=== PATIENT | female | born 1950 | race African-American/Black ===

== ENCOUNTER 2017-01-26 21:00 | Inpatient (IN) | payer MEDICARE, MEDICAID ==
--- NOTE | ~2017-01-26 | CT71 ---
[facility] A Service of [facility] RADIOLOGY TEXT RESULTS PATIENT: RIA MIRANDA LOCATION: [facility] 329 : 49 UNIT #: [id number] AGE: [address]: Drake Turner MD SEX: F ORDER DR: [id number] [place], [place] [address] [id number] I MR#: [id number] Acc #: [id number] NAME: RIA MIRANDA : 1950 SEX: F STUDY DATE/TIME: 02/03/2017 13:37 UNIT: C3A PCU ROOM: [facility] STUDY DESCRIPTION: CT Head Wo Contrast Attending Physician: Drake Turner M.D. Referring Physician: Self Referral-Refer Use Only Ordering Physician: Clemente Craven M.D. Primary Care Physician: Primary Care Physician No MEDICAL IMAGING REPORT This report is preliminary unless electronic signature is present EXAM CT head INDICATIONS Confusion. Temporary encephalopathy. 1-day duration. TECHNIQUE CT of the head without contrast. This CT exam was performed with one or more of the following radiation dose reduction techniques: automatic exposure control, adjustment of mA and/or kV according to patient size, and iterative reconstruction. COMPARISON CT head dated 11/20/2016 FINDINGS There is no acute intracranial hemorrhage, mass lesion, or acute infarct. There is some mild chronic small vessel changes in the periventricular and subcortical white matter. The ventricle and basilar cisterns are normal in size and configuration. No extraaxial collections. IMPRESSION No acute findings. Chronic small vessel changes. Dictated by... Moi Cardona M.D. THIS IS AN ELECTRONICALLY VERIFIED REPORT Moi Cardona M.D. at 02/04/2017 2:12 PM [facility]/to TD: 02/03/2017 20:15 JOB #: [id number] [facility] A Service [facility] RADIOLOGY TEXT RESULTS PATIENT: RIA MIRANDA LOCATION: [facility] 329 : 49 UNIT #: [id number] AGE: [address]: Drake Turner MD SEX: F ORDER DR: MEDICAL IMAGING REPORT Page 1 of 1 COPY
--- NOTE | ~2017-01-26 | CT92 ---
[facility] A Service of [facility] RADIOLOGY TEXT RESULTS PATIENT: RIA MIRANDA LOCATION: [address] : [birth year] UNIT #: [id number] AGE: [address]: Drake Turner MD SEX: F ORDER DR: [id number] [facility] [address] [facility]. [place], [place] [address] [id number] I MR#: [id number] Acc #: [id number] NAME: RIA MIRANDA : 1950 SEX: F STUDY DATE/TIME: 01/31/2017 16:07 UNIT: [facility] ROOM: [facility] STUDY DESCRIPTION: CT Lower Ext Lt Wo Cont Attending Physician: Drake Turner M.D. Referring Physician: Self Referral-Refer Use Only Ordering Physician: Aury Gonsalez M.D. Primary Care Physician: Primary Care Physician No MEDICAL IMAGING REPORT This report is preliminary unless electronic signature is present EXAM CT left foot without contrast HISTORY Foot swelling and redness, chronic. Evaluate for osteomyelitis. FINDINGS This CT exam was performed with one or more of the following radiation dose reduction techniques: Automatic exposure control, adjustment of mA and/or kV according to patient size, and iterative reconstruction. CT left foot without contrast demonstrates soft tissue swelling and a 3 mm soft tissue defect along the medial plantar margin of the base of the great toe, suggesting soft tissue edema or inflammation and a small skin ulcer. No underlying bone destruction. No opaque soft tissue foreign body. Generalized demineralization. Moderate degenerative changes in the ankle and mild to moderate degenerative changes in the midfoot. Motion artifact degrades several images, with probable artifactual abnormalities at the neck of the third, fourth and fifth metatarsals due to the motion artifact, mimicking fractures on the reconstructed images. Correlation to foot x-ray is recommended, for confirmation, and to exclude fracture. Small ankle joint effusion. IMPRESSION 1. No bony destruction. 2. Soft tissue swelling and subcutaneous stranding along the plantar margin of the foot, more focally along the plantar medial margin of the base of the great toe, where there is a 3 mm superficial soft tissue defect and underlying soft tissue gas, likely secondary to ulcer versus gas-producing soft tissue infection. 3. Motion artifact probably simulates fractures of the neck of the third, fourth and fifth metatarsals. X-ray of the foot is recommended for further assessment and to exclude fracture. [facility] A Service of [facility] RADIOLOGY TEXT RESULTS PATIENT: RIA MIRANDA LOCATION: [place] [address]14 : 49 UNIT #: [id number] AGE: [address]: Drake Turner MD SEX: F ORDER DR: 4. Generalized demineralization. 5. Moderate degenerative changes in the mid foot and ankle. Dictated by... Hemanth Garcia M.D. THIS IS AN ELECTRONICALLY VERIFIED REPORT Hemanth Garcia M.D. at 02/01/2017 12:04 AM DFL/psc TD: 01/31/2017 20:22 JOB #: [id number] MEDICAL IMAGING REPORT Page 1 of 1 COPY
--- NOTE | ~2017-01-26 | FU ---
[facility] Nutrition Therapy DATE: 02/05/17 Patient: RIA MIRANDA Physician: LILIANA Address: [address] Room/Bed: [address] [place] [address], Zip: [place] [address] Admit Date: 01/26/17 Date of : 49 Height: 5 6 Weight: 168 76.5 NUTRITION MONITORING/FOLLOW-UP: Reason: Nutrition follow up Anthropometrics: Wt: 76.5 kg Labs: Na+ 129 Cl- 77 Gluc 240 BUN 34 Ca++ 8.3 Accuchecks 58-170 GFR 54.2 Meds: Spironolactone, MgSO4, KCl, levemir, lipitor, Mag-ox, protonix, synthroid (PO), novolog I&O's: 948/1701, last BM 02/05 Skin: Reviewed, no changes noted. Edema: BLE 1+ Diet: HH/CC, fluid restriciton per MD Assessment: Chart reviewed, events noted. Pt is now on 3A. RD spoke with the pt's RN who reports that the pt's appetite is much improved, and she is consuming 100% of meals today. Staff working with pt at time of RD visit. Pt remains with increased protein needs d/t skin breakdown. RD will order appropriate supplements and follow up. Previous nutrition diagnosis resolved, see new Dx. Dx: Increased protein needs RT skin breakdown, pressure ulcers AEB delayed wound healing. Intervention: 1. Continue current diet 2. Ensure compact BID 3. Moise BID Monitoring, Evaluation and Goals: 1. Oral intake; tolerate >50-75% of meals 2. Labs; WNL 3. Weight; preserve lean body mass 4. Skin; promote healing Recommendations: 1. Continue current diet with fluid restriction per MD orders. 2. Ensure compact BID + Moise BID for supplemental nutrition and wound healing support. [facility] Nutrition Therapy DATE: 02/05/17 Patient: RIA MIRANDA Physician: LILIANA Address: [address] Room/Bed: [address] [place] [address], Zip: [place] [address] Admit Date: 01/26/17 Date of : [birth year] Height: 5 6 Weight: 168 76.5 3. Appreciate staff and family encouraging and assisting with PO intake as needed. Status: Pt is at mild-moderate nutritional risk. RD will continue to follow. Respectfully, MARZENA POLK, JHONATAN, LD [employer] cc: client file
--- NOTE | ~2017-01-26 | CO ---
Unit #: [id number] #: [id number] Patient: RIA CARROLL [id number] [facility]. [place], [place] [address] [id number] I MR#: [id number] NAME: RIA CARROLL ROOM: [facility] Age: 66 Sex: F Admission Date: 01/26/2017 : 1950 Attending Physician: Drake Turner M.D. Primary Care Physician: Jamee Primary Care Physician Consultation Date: 01/27/2017 CONSULTATION REPORT REASON FOR CONSULTATION Cardiovascular management. HISTORY OF PRESENT ILLNESS This is a 66-year-old female previously known to [facility] Cardiology with a past medical history of a recent admission to [facility] in 11/2016 for nonischemic cardiomyopathy, congestive heart failure and a fall. The patient was also treated for an acute kidney injury and hyperkalemia at that time. She underwent cardiac catheterization on 11/22/2016, which revealed nonobstructive coronary artery disease. Left main was 30%-40%. LAD was 30%. Mid right coronary artery was 20%-30%. Left circumflex was normal. Ejection fraction was low at 10%-15%. She underwent a Medtronic atrial implantable cardioverter defibrillator on 11/26/2016. Additional past medical history includes hypertension, hyperlipidemia, diabetes mellitus, hypothyroidism and reformed tobacco abuse. The patient presented to the emergency department per EMS with complaints of fatigue, shortness of breath and edema. Her symptoms have been present for the last couple of days and recently became worse. She also admits to some chest pain in her left anterior chest that is described as tightness. There is no radiation to the neck, jaw, shoulders or arms. No associated symptoms of nausea, vomiting or diaphoresis. However, she has been short of breath as noted. In addition, she admits to PND and orthopnea. There are no reports of dizziness, palpitations or syncope. She states that she has been compliant with her medications, but does not always follow her fluid restriction. Respiratory rate was 30, pulse 105 with a blood pressure of 135/52. O2 saturations were 98%. Labs revealed white blood cell count 31.6, hemoglobin 9.1, hematocrit 31.7. Creatinine was 2.0 with a BUN 28. The patient became aneuric despite Villavicencio catheter placement. She was admitted for acute hypoxic respiratory failure in the intensive care unit. Chest x-ray revealed vascular congestion with a small right pleural effusion. There was concern for some septic pneumonia. She was started on antibiotics. Cardiology was consulted for cardiovascular management. PAST MEDICAL HISTORY 1. Recent admission to [facility] 11/2016 for nonischemic cardiomyopathy, systolic congestive heart failure, fall, acute kidney injury and hyperkalemia. 2. Coronary artery disease status post cardiac catheterization 11/22/2016, with left main 30%-40%, OM 30%, left circumflex normal. Mid right coronary artery 20%-30%. Left ventricular ejection Unit #: [id number] #: [id number] Patient: RIA CARROLL fraction 10%-15%. 3. Status post Medtronic atrial implantable cardioverter defibrillator 11/26/2016. 4. Hypertension. 5. Hyperlipidemia. 6. Diabetes mellitus type 2, insulin dependent. 7. Hypothyroidism. 8. Chronic obstructive pulmonary disease. 9. Gastroesophageal reflux disease. 10. Reformed tobacco abuse. PAST SURGICAL HISTORY 1. Catheterization as noted above. 2. Atrial implantable cardioverter defibrillator. 3. Hysterectomy. SOCIAL HISTORY The patient lives in a private residence. She is a reformed smoker. There are no reports of alcohol or illicit drug use. FAMILY HISTORY Noncontributory. ALLERGIES No known drug allergies. HOME MEDICATIONS 1. Advair 250/50 one puff inhalation b.i.d. 2. Combivent 1 puff inhalation q.8 h. 3. Aspirin 81 mg p.o. daily. 4. Lipitor 20 mg p.o. at nighttime. 5. Coreg 3.125 mg p.o. b.i.d. 6. Digoxin 0.125 mg p.o. daily. 7. Furosemide 40 mg p.o. daily. 8. NovoLog sliding scale. 9. Levemir 9 units subcutaneous before breakfast. 10. Levemir 8 units subcutaneous at bedtime. 11. Levothyroxine 25 mcg p.o. daily. 12. Lisinopril 40 mg daily. 13. Magnesium oxide 400 mg p.o. daily. 14. Protonix 40 mg daily. 15. Santyl 1 application topically b.i.d. REVIEW OF SYSTEMS Ten point review of systems negative except as details noted above in history of present illness. PHYSICAL EXAMINATION GENERAL: Ms. Carroll is a 66-year-old female who is mildly distressed and tachypneic. Currently on a nonrebreather. SKIN: Warm and dry. NECK: Supple. Positive jugular venous distension. No hepatojugular reflux. Normal carotid upstrokes. No carotid bruits auscultated. LUNGS: Bilateral breath sounds have scattered rales. Respirations tachypneic and mildly labored. No rhonchi or wheezes. HEART: S1 and S2. Regular rate and rhythm. No rubs. Positive S3 gallop, 2/6 systolic ejection murmur. ABDOMEN: Soft, nontender and nondistended. Positive bowel sounds Unit #: [id number] #: [id number] Patient: RIA CARROLL auscultated in all four quadrants. No ascites noted. EXTREMITIES: Bilateral lower extremities have 3+ pretibial pitting edema. Capillary refill less than 3 seconds. DIAGNOSTIC STUDIES IMAGING: Chest x-ray revealed vascular congestion with a small right pleural effusion. Cardiomegaly. LABORATORY: White blood cell count 24.1, hemoglobin 8.5, hematocrit 20.8, platelets 175. Sodium 139, potassium 3.8, chloride 106, CO2 22, BUN 31, creatinine 2.4, glucose 295. Magnesium 1.2 on 01/26/2017. BNP 4,651. Lactic acid 7.2 and 3.9. Blood cultures reveal gram positive cocci. CARDIOVASCULAR: Electrocardiogram revealed sinus tachycardia with a right axis deviation. Nonspecific ST-T wave changes. ASSESSMENT 1. Acute hypoxic respiratory failure, currently on nonrebreather mask. 2. Sepsis. 3. Pneumonia. 4. Lactic acidosis. 5. Acute on chronic systolic congestive heart failure with a left ejection fraction of 10%-15%. 6. Nonischemic cardiomyopathy with a history of atrial implantable cardioverter defibrillator 11/2016. 7. Nonobstructive coronary artery disease 11/2016. 8. Atypical chest pain. 9. Acute renal failure with decreased urine output. 10. Hypomagnesemia. 11. Anemia. PLAN 1. The patient presented to hospital with complaints of shortness of breath, weakness and chest pain. She was admitted for respiratory failure and concern for sepsis. 2. Cardiology was consulted for cardiovascular management. 3. On exam the patient has significant edema and is volume overloaded. 4. She will be started on dobutamine. Nephrology has been consulted and will dose diuretics. 5. The patient's IV fluids will be discontinued. 6. TSH and fasting lipid profile will be obtained. 7. The patient complains of chest pain which is likely noncardiac as coronaries were nonobstructed in 11/2016. I will check cardiac enzymes and EKG. 8. Two-dimensional echocardiogram will be obtained to reassess left ventricular function and to rule out pathology such as large pericardial effusion. 9. The patient has been encouraged to be compliant with fluid restriction and low-sodium diet. 10. No beta helen will be given at this time due to dobutamine. No THALIA or ARB will be prescribed secondary to renal insufficiency. Dictated by... Phoebe Fair APRN for Owen Barrett M.D. Unit #: [id number] #: [id number] Patient: RIA CARROLL TR/gz TD: 01/31/2017 12:08 JOB #: [id number] CC: [facility] Cardiologists CONSULTATION REPORT Page 1 of 1 X X CONSULTATION REPORT
--- NOTE | ~2017-01-26 | OR ---
Unit #: [id number] #: [id number] Patient: RIA MIRANDA [id number] [address] [id number] I MR#: [id number] NAME: RIA MIRANDA ROOM: [facility] Date of Procedure: 02/12/2017 Admission Date: 01/26/2017 Surgeon: Ronal Russell M.D. : 1950 Attending Physician: Drake Turner M.D. OPERATIVE REPORT JOB NOTE: CC: PRIMARY CARE PHYSICIAN INDICATIONS FOR PROCEDURE Esophagogastroduodenoscopy with biopsy. INDICATIONS FOR PROCEDURE The patient with severe anemia, undergoing evaluation with upper endoscopy looking for any GI bleeding source. MEDICATIONS Monitored anesthesia. POSTOPERATIVE FINDINGS 1. Small hiatal hernia. 2. Mild gastritis. Biopsies taken for H pylori. 3. Normal duodenum and distal duodenum. 4. No large ulcers or active bleeding was seen. PLAN Continue with supportive care. Transfuse as necessary. DESCRIPTION OF PROCEDURE The patient was explained of the procedure, risks, and benefits along with risks and benefits of anesthesia. She was brought to the endoscopy room. Conscious sedation was used, only 1 mg of Versed was given. Scope was passed down the mouth into the esophagus, stomach, duodenum, and distal duodenum. Findings as described. Biopsies taken. Gently, I pulled it out of the patient's mouth. She tolerated it well. Dictated by... Lola Dan/wai TD: 02/12/2017 23:02 JOB #: [id number] Unit #: [id number] #: [id number] Patient: RIA MIRANDA OPERATIVE REPORT Page 1 of 1 X Ronal Russell MD X PROCEDURE OPERATIVE NOTE
--- NOTE | ~2017-01-26 | EKG ---
PATIENT: RIA MIRANDA UNIT #: [id number] Ventricular Rate: 119 BPM Atrial Rate: 119 BPM P-R Interval: 164 ms QRS Duration: 102 ms Q-T Interval: 348 ms QTC Calculation(Bezet): 489 ms P [place]: 31 degrees Calculated R [place]: 122 degrees Calculated T [place]: -12 degrees Diagnosis Line: Sinus tachycardia with Premature atrial complexes Diagnosis Line: Incomplete right bundle branch block Diagnosis Line: Right ventricular hypertrophy Diagnosis Line: Septal infarct , age undetermined Diagnosis Line: Abnormal ECG Diagnosis Line: No previous ECGs available Diagnosis Line: Confirmed by JOSE KULKARNI MD ([id number]) on 01/28/2017 Diagnosis Line: 10:56:11 PM INTERPRETING MD: CAYLA SUERO
--- NOTE | ~2017-01-26 | CR72 ---
[facility] A Service of [facility] & [facility] RADIOLOGY TEXT RESULTS PATIENT: RIA MIRANDA LOCATION: [address] : [birth year] UNIT #: [id number] AGE: [address]: Drake Turner MD SEX: F ORDER DR: [id number] [facility] [address] [place], [place] [address] [id number] I MR#: [id number] Acc #: [id number] NAME: RIA MIRANDA : 1950 SEX: F STUDY DATE/TIME: 02/01/2017 4:52 UNIT: [facility] ROOM: [facility] STUDY DESCRIPTION: CR Chest Single View Portable Attending Physician: Drake Turner M.D. Referring Physician: Self Referral-Refer Use Only Ordering Physician: Clemente Craven M.D. Primary Care Physician: Primary Care Physician No MEDICAL IMAGING REPORT This report is preliminary unless electronic signature is present EXAM Frontal chest 02/01/2017 INDICATION 66-year-old female with a history of congestive heart failure, respiratory failure. Symptoms for 6 days. TECHNIQUE Frontal chest compared with 01/30/2017. FINDINGS The patient is rotated to the right. Right-sided PICC line configuration has changed and the tip is now superimposed over the trachea and may be directed towards the brachiocephalic vein on the left. It previously extended to the level of the [id number] SVC. Preexisting right-sided central line from a neck approach is unchanged. Left-sided pacemaker unchanged. Cardiac silhouette is enlarged. Lung volumes remain low. Left basilar atelectasis or infiltrate and superimposed effusion persists. There are some patchy opacities in the right lung base. No pneumothorax. There are calcified granulomas. IMPRESSION 1. The right-sided PICC line tip is now directed slightly to the left of midline and may be tracking towards the left brachiocephalic vein. It previously terminated at the level of the [id number] SVC. No pneumothorax. Right-sided central line from a neck approach unchanged. 2. Persistent cardiomegaly with low lung volumes. There is left basilar atelectasis or infiltrate and a left-sided effusion. Patchy opacities in the right lung base not significantly changed for technical factors. STAT * RESULT [facility] A Service of [facility] & [facility] RADIOLOGY TEXT RESULTS PATIENT: RIA MIRANDA LOCATION: [place] [address]14 : 49 UNIT #: [id number] AGE: [address]: Drake Turner MD SEX: F ORDER DR: Dictated by... Vinicio Jacob M.D. THIS IS AN ELECTRONICALLY VERIFIED REPORT Vinicio Jacob M.D. at 02/01/2017 6:21 AM Marie TD: 02/01/2017 06:04 JOB #: [id number] MEDICAL IMAGING REPORT Page 1 of 1 COPY
--- NOTE | ~2017-01-26 | CO ---
Unit #: [id number] #: [id number] Patient: SHIRA CARROLL [id number] [address] [id number] I MR#: [id number] NAME: SHIRA CARROLL ROOM: 329 Age: 66 Sex: F Admission Date: 01/26/2017 : 1950 Attending Physician: Drake Turner M.D. Primary Care Physician: No Primary Care Physician Consultation Date: 02/13/2017 CONSULTATION REPORT REASON FOR CONSULTATION Followup. DISCUSSION Ms. Shira Carroll is a 66-year-old female seen in room 329, bed 1 on 02/13/2017. Patient was compliant and cooperative during interview. Mood sad, dysphoric, irritable, guarded, paranoid, and mood lability. Able to answer questions in short sentences, but still having problem with the confusion. Poor historian. REVIEW OF SYSTEMS Complete review of systems is unremarkable. MENTAL STATUS EXAMINATION GENERAL APPEARANCE: Patient dressed casually in hospital attire. Lying comfortably in bed. ATTENTION SPAN AND CONCENTRATION: Poor. SPEECH: Slow. ORIENTATION: Oriented in self and place. MOOD AND AFFECT: Labile. THOUGHT PROCESS: Circumstantial. THOUGHT CONTENT: Guarded, paranoid. RECENT AND REMOTE MEMORY: Poor. LANGUAGE: Fair. FUND OF KNOWLEDGE: Impaired. INSIGHT AND JUDGEMENT: Impaired. DIAGNOSES PSYCHIATRIC 1. 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 2. Delirium, F05, resolving. ASSESSMENT/PLAN 1. Supportive psychotherapy and psychoeducation provided to patient. 2. Educated about benefits and side effects of medication and course and prognosis of illness. If needed, consider further adjustment of medication. Dictated by... Brandyn Lehman M.D. Unit #: [id number] #: [id number] Patient: SHIRA CARROLL ALFONZO/don TD: 02/14/2017 11:30 JOB #: [id number] CONSULTATION REPORT Page 1 of 1 X Brandyn Lehman MD CONSULTATION REPORT
--- NOTE | ~2017-01-26 | CO ---
Unit #: [id number] #: [id number] Patient: RIA CARROLL [id number] [facility] [address] [facility]. [place], [place] [address] [id number] I MR#: [id number] NAME: RIA CARROLL ROOM: 329 Age: 66 Sex: F Admission Date: 01/26/2017 : 1950 Attending Physician: Drake Turner M.D. Consultation Date: 02/06/2017 CONSULTATION REPORT REASON FOR CONSULTATION Followup. DISCUSSION Ms. Benjamin Carroll is a 66-year-old female, seen in room 329, bed 1 at [facility] on 02/06/2017. The patient was compliant, cooperative, redirectable, making progress. The patient continues to be very confused and unable to give reliable information. The patient is being fed by the staff. The patient did not require any restrain. No agitation. Flat affect, sad, dysphoric, but able to answer some of the questions. The patient reports she is making progress. Still having problem with confusion, but much improvement. REVIEW OF SYSTEMS Complete review of systems is unremarkable. MENTAL STATUS EXAMINATION General appearance, the patient dressed in hospital attire, lying comfortably in bed. Attention span and concentration, fair. Speech, slow and long pauses. Orientation in self. Mood and affect were sad, dysphoric, flat. Thought process, circumstantial. Thought content, guarded, paranoid, confused, but denied any thoughts of harming self or others. Recent and remote memory, poor. Language, fair. Fund of knowledge, impaired. Insight and judgment, impaired. DIAGNOSES Psychiatric: Delirium, F05, improving. Secondary diagnosis: Deferred. Medical diagnosis: Please refer to H and P. ASSESSMENT AND PLAN 1. Supportive psychotherapy and psychoeducation provided to the patient, but the patient unable to comprehend much. 2. Recommending at this time to continue with current medication. We will continue to follow. If needed, consider further adjustment of medication and monitor the patient's mood and behavior. The patient's vital signs are temperature 98.4, pulse 78, respirations 18, blood pressure is 118/63. Please feel free to call if any questions, telephone #[phone]. Dictated by... Unit #: [id number] #: [id number] Patient: RUBENAZRARIALola Madrid/wai TD: 02/07/2017 22:49 JOB #: [id number] CONSULTATION REPORT Page 1 of 1 X Brandyn Lehman MD CONSULTATION REPORT
--- NOTE | ~2017-01-26 | DS ---
Unit #: [id number] #: [id number] Patient: RIA MIRANDA [id number] [address] [address] [id number] I MR#: [id number] NAME: RIA MIRANDA ROOM: 329 Age: 66 Sex: F Admission Date: 01/26/2017 : 1950 Discharge Date: 02/14/2017 Attending Physician: Drake Turner M.D. Referring Physician: Self Referral-Refer Use Only Primary Care Physician: Primary Care Physician No DISCHARGE SUMMARY DISCHARGE MEDICATIONS 1. Combivent inhaler q.4 h. 2. Fluticasone. 3. Tylenol p.r.n. 4. Magnesium oxide 400 mg daily. 5. Zofran 4 mg q.6 h. p.r.n. 6. Coreg 3.125 mg p.o. b.i.d. 7. MiraLAX daily. 8. Lipitor 20 mg h.s. 9. Levemir 8 units subcu h.s. 10. Levemir 9 units subcu q.a.m. 11. Sliding scale insulin. 12. Santyl ointment b.i.d. to affected areas. 13. Aspirin 81 mg daily. 14. H-Chlor topically b.i.d. to the left great toe. 15. Protonix 40 mg daily. 16. Levothyroxine 75 mcg daily. DISPOSITION Going to a subacute rehab at [place] to Dr. González Moore's care. Also extended home nursing agency to follow at the subacute rehab. FOLLOWUP Gastroenterology, Renal, Pulmonary, and Cardiology. CONSULTANTS 1. Intensive care/pulmonary, Dr. Craven. 2. Nephrology, Dr. Thapa. 3. Gastroenterology, Dr. Russell. 4. Psychiatry, Dr. Lehman. 5. Neurology, Dr. Shah. 6. Endocrinology, Dr. Lowe. DIAGNOSTIC STUDIES 1. Dialysis catheter placement per Dr. Craven. 2. EGD per Dr. Russell. Showed mild gastritis, small hiatal hernia, no large ulcers or active bleeding. 3. Chest x-ray initially pulmonary vasculature prominence suggesting mild CHF. Pacemaker leads intact. No pneumothorax. Qvks-io-zwygxxey CHF. Right pleural effusion. 4. CT chest without contrast. Small right pleural effusion, right basal atelectasis. Marked cardiomegaly. No pericardial fluid. 5. Renal ultrasound. Normal bilateral renal ultrasound. 6. Lower extremity CT on the left, no bony destruction, soft tissue Unit #: [id number] #: [id number] Patient: STONE,RIA swelling and subcutaneous draining along with the plantar margin of the foot more focally and mild at the plantar medial margin the base of the great toe. Soft tissue infection. 7. CT of the head without contrast, no acute findings. 8. Last chest x-ray with stable cardiomegaly, right IJ catheter removed. No pneumothorax. No acute pulmonary findings. 9. Blood culture from 01/26/2017 showed MRSA. Last blood culture from 01/31/2017 times 2 negative. 10. Stool for occult blood positive. 11. Urine culture from 02/14/2017 so far negative. 12. Wound culture from 01/29/2017 showed Morganella morganii, MRSA and E coli. HISTORY Please refer to History and Physical done by me for initial presentation on this female. HOSPITAL COURSE Acute respiratory failure. Initially was maintained in the ICU and followed by Pulmonary in the intensive care. She was initially dialyzed to remove some extra fluids. The patient's respiratory status improved, currently stable from pulmonary standpoint to be discharged. Last chest x-ray as above. MRSA sepsis with bacteremia and lower extremity infection, status post evaluation per ID who is status post completion of IV antibiotics. Discharge date white count 9.4. She is afebrile at 98.9. Stable to be discharged. Nonischemic cardiomyopathy, status post cardiology evaluation. Continue Coreg. Acute renal failure. Discharge BUN 67, creatinine 1.4. Outpatient followup with nephrology. Monitor renal function closely at the subacute rehab. Questionable GI bleed with fecal occult blood positive stool. Subsequent evaluation per Gastroenterology. Continue PPI. Last day, hemoglobin 8.3 and hematocrit 25.7. No active bleeding on EGD. Not a good candidate for colonoscopy at this time per Gastroenterology. Outpatient follow up with GI. Monitor hemoglobin and hematocrit at the correction. Hypernatremia. Discharge date sodium was 132. Restrict p.o. fluids to 1.5 liters per day. Diabetes stable. Continue current insulin regime as above. DISCHARGE MEDICATIONS As above. DISPOSITION As above. Unit #: [id number] #: [id number] Patient: RIA MIRANDA Dictated by... Lola Meyers/edward TD: 02/14/2017 21:05 JOB #: [id number] DISCHARGE SUMMARY Page 1 of 1 X Drake Turner MD X DISCHARGE SUMMARY
--- NOTE | ~2017-01-26 | CO ---
Unit #: [id number] #: [id number] Patient: SHIRA CARROLL [id number] [facility] [address] [facility]. [place], [place] [address] [id number] I MR#: [id number] NAME: SHIRA CARROLL ROOM: 329 Age: 66 Sex: F Admission Date: 01/26/2017 : 1950 Attending Physician: Drake Turner M.D. Primary Care Physician: Primary Care Physician No Consultation Date: 02/08/2017 CONSULTATION REPORT DISCUSSION Ms. Shira Carroll is a 66-year-old female, seen on 02/08/2017, in room 329, at [facility]. The patient was diagnosed with delirium. The patient was admitted on 01/26/2017 with acute hypoxemic respiratory failure. The patient was treated in ICU and then transferred to the floor. The patient still having problem with confusion, but getting better. No agitation. Did not require any seclusion holdings. The patient was able to answer some of the question, but then unable to answer much detail. The patient is compliant with medication, eating good, and sleeping better. REVIEW OF SYSTEMS Complete review of systems is unremarkable. MENTAL STATUS EXAMINATION General appearance, the patient dressed casually. Attention span and concentration, fair. Speech was slow and long pauses. Oriented in self. Mood and affect were sad and dysphoric. Thought process, circumstantial. Thought content, guarded and paranoid, but no self-harming behavior or aggressive behavior. Recent and remote memory, poor. Language, fair. Fund of knowledge, poor. Insight and judgment, impaired. DIAGNOSES Psychiatric: Delirium, F05, improving. Secondary diagnosis: Deferred. Medical diagnosis: Please refer to H and P. ASSESSMENT/PLAN 1. Supportive psychotherapy and psychoeducation provided to the patient, but the patient unable to comprehend much. 2. Recommending at this time to continue with current medication and if needed, consider further adjustment of medication. We will closely monitor the patient's mood and behavior. The patient is currently on no psychotropic medication, but was tried on Haldol initially. We will consider if needed. Dictated by... Brandyn Lehman M.D. ALFONZO/wai Unit #: [id number] #: [id number] Patient: SHIRA CARROLL TD: 02/10/2017 13:55 JOB #: [id number] CONSULTATION REPORT Page 1 of 1 X Brandyn Lehman MD CONSULTATION REPORT
--- NOTE | ~2017-01-26 | FU ---
[facility] Nutrition Therapy DATE: 02/01/17 Patient: RIA MIRANDA Physician: LILIANA Address: [address] Room/Bed: [address], Zip: [place] [address] Admit Date: 01/26/17 Date of : [birth year] Height: 5 6 Weight: 190 86.5 NUTRITION MONITORING/FOLLOW-UP: Reason: Nutrition follow up Anthropometrics: Wt 02/01: 86.5 kg Labs: Na+ 133 K+ 2.6 Cl- 88 Gluc 146 BUN 34 Creat 1.5 Alb 2.3 ALT 44 Accuchecks 142 GFR 41.4 Meds: Spironolactone, MgSO4, KCl, levemir, lipitor, mag-ox, protonix, synthroid (PO), novolog I&O's: 6460/8142, last BM 01/26 Skin: Reviewed, no changes noted. Edema: Generalized- abdomen/ BUE/ hands/ trunk Diet: HH/CC diet with fluid restriction per MD Assessment: Chart reviewed, events noted. Pt remains in ICU now on diet as noted above. Per RN report at rounds for the past couple of days, the pt has been lethargic with poor PO intake, only taking bites of food. Family has attempted to bring the pt outside food, and she still will only take bites of food. Based on RN report, it seems that the pt's poor intake is due to lethargy. RD will order the pt supplements and follow up to further determine nutritional status. Dx: Inadequate protein-energy intake RT clinical condition AEB poor PO intake. Intervention: 1. HH/CC diet 2. Fluid restriction per MD 3. Ensure TID Monitoring, Evaluation and Goals: 1. Oral intake; tolerate >50% of meals and supplements 2. Labs; WNL 3. Weight; preserve lean body mass 4. Skin; promote healing Recommendations: 1. Continue current diet as tolerated. Liberalize diet if this will improve PO intake. [facility] Nutrition Therapy DATE: 02/01/17 Patient: RIA MIRANDA Physician: LILIANA Address: [address] Room/Bed: [address], Zip: [place] [address] Admit Date: 01/26/17 Date of : [birth year] Height: 5 6 Weight: 190 86.5 2. Add Ensure compact TID for supplemental nutrition. 3. Appreciate staff and family encouraging and assisting with PO intake as needed. 4. If the pt's PO intake does not improve, may consider obtaining short-term enteral access for supplemental nutrition. RD to follow. Status: Pt is at moderate nutritional risk. Respectfully, MARZENA POLK RD, LD Food and Nutritional Services [facility] cc: client file
--- NOTE | ~2017-01-26 | CO ---
Unit #: [id number] #: [id number] Patient: RIA CARROLL [id number] [facility] [address]. [place], [place] [address] [id number] I MR#: [id number] NAME: RIA CARROLL ROOM: 329 Age: 66 Sex: F Admission Date: 01/26/2017 : 1950 Attending Physician: Drake Turner M.D. Primary Care Physician: Primary Care Physician No Consultation Date: 02/12/2017 CONSULTATION REPORT REASON FOR CONSULTATION Followup. DISCUSSION Ms. Krzysztof Carroll is a 66-year-old female, seen on 02/12/2017 in room [address] [facility]. The patient was receiving blood because of low hemoglobin. Mood was labile, anxious, nervous. Vital signs stable; temperature 98.1, pulse 82, respirations 20, blood pressure 96/49, oxygen saturation 100%. The patient still having bizarre thought process, paranoia, mood lability. The patient unable to give any reliable information. The patient still having periods of time when she is yelling, mood lability, get mad, upset. No restrains or any p.r.n. medication needed. REVIEW OF SYSTEMS Complete review of systems is unremarkable. MENTAL STATUS EXAMINATION General appearance; the patient dressed casually, lying comfortably in bed. Attention span and concentration, poor. Speech, slow. Orientation in self and place. Mood and affect were labile. Thought process, circumstantial. Thought content, guarded and paranoid. Recent and remote memory, poor. Language, fair. Fund of knowledge, impaired. Insight and judgment, impaired. DIAGNOSES Psychiatric: 1. 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 2. Delirium, F05, resolving. ASSESSMENT/PLAN Supportive psychotherapy and psychoeducation provided to the patient, but the patient unable to comprehend much. Discussed case with nursing staff and advised behavioral recommendations. At this time, the patient has p.r.n. Ativan. If needed, consider further adjustment of medication. Please feel free to call if any questions telephone #[phone]. Dictated by... Brandyn Lehman M.D. ALFONZO/wai Unit #: [id number] #: [id number] Patient: RIA CARROLL TD: 02/13/2017 06:04 JOB #: [id number] CONSULTATION REPORT Page 1 of 1 X Brandyn Lehman MD CONSULTATION REPORT
--- NOTE | ~2017-01-26 | CT57 ---
[facility] A Service of [facility] RADIOLOGY TEXT RESULTS PATIENT: RIA MIRANDA [address] [birth year] UNIT #: [id number] AGE: [address]: Drake Turner MD SEX: F ORDER DR: [id number] [facility] [address] [facility]. [place], [place] [address] [id number] I MR#: [id number] Acc #: [id number] NAME: RIA MIRANDA : 1950 SEX: F STUDY DATE/TIME: 01/27/2017 8:20 UNIT: [facility] ROOM: [facility] STUDY DESCRIPTION: CT Chest Wo Cont Attending Physician: Drake Turner M.D. Referring Physician: Self Referral-Refer Use Only Ordering Physician: Nehemias Garza M.D. Primary Care Physician: Primary Care Physician No MEDICAL IMAGING REPORT This report is preliminary unless electronic signature is present EXAM Chest CT without contrast HISTORY Shortness of breath and cough for the past several days with chronic history of hypertension. Heart disease and congestive heart failure. TECHNIQUE Axial images were obtained without contrast and evaluated at lung and mediastinal windows. This CT exam was performed with one or more of the following radiation dose reduction techniques: automatic exposure control, adjustment of mA and/or kV according to patient size, and iterative reconstruction. COMPARISON Chest CT from 01/23/2007 FINDINGS Chest images at mediastinal window show cardiomegaly. The cardiac size has increased significantly since the previous exam. There is a small right pleural effusion. There is no evidence of pericardial fluid. Lung window imaging shows compressive atelectasis at the right lung base related to the pleural effusion. The left lung is clear. No suspicious infiltrates. No evidence of pneumothorax. IMPRESSION Small right pleural effusion with right basilar atelectasis. Marked cardiomegaly which has worsened since the previous CT in 2006. No pericardial fluid. Dictated by... [facility] A Service of [facility] RADIOLOGY TEXT RESULTS PATIENT: RIA MIRANDA [facility] [birth year] UNIT #: [id number] AGE: [address]: Drake Turner MD SEX: F ORDER DR: Nehemias Zuniga M.D. THIS IS AN ELECTRONICALLY VERIFIED REPORT Nehemias Zuniga M.D. at 01/29/2017 9:44 AM Priyanka TD: 01/27/2017 22:09 JOB #: [id number] MEDICAL IMAGING REPORT Page 1 of 1 COPY
--- NOTE | ~2017-01-26 | OR ---
Unit #: [id number] #: [id number] Patient: RIA MIRANDA [id number] [address] [address] [id number] I MR#: [id number] NAME: RIA MIRANDA ROOM: [facility] Date of Procedure: Admission Date: 01/26/2017 Surgeon: Clemente Craven M.D. : 1950 Attending Physician: Drake Turner M.D. Referring Physician: Marlys Self Referred Primary Care Physician: Jamee Primary Care Physician PROCEDURE OPERATIVE NOTE PROCEDURE Dialysis catheter placement. INDICATION Renal failure. PRE-PROCEDURE DIAGNOSIS Renal failure. POST-PROCEDURE DIAGNOSIS Renal failure. DETAILS OF THE PROCEDURE After taking consent from the patient explaining the risks and benefits, the patient was place din a proper position. With modified Seldinger technique under all aseptic measures with ultrasound guidance, a dialysis catheter placed in the right internal jugular central vein and all three ports flushed and working. The patient tolerated the procedure very well. No complications happened. The line was secured with two interrupted sutures in place. Dictated by... Lola Rivas TD: 01/28/2017 05:58 JOB #: [id number] PROCEDURE OPERATIVE NOTE Page 1 of 1 X Clemente Craven MD X PROCEDURE OPERATIVE NOTE
--- NOTE | ~2017-01-26 | EKG ---
PATIENT: RIA MIRANDA UNIT #: [id number] Ventricular Rate: 85 BPM Atrial Rate: 85 BPM P-R Interval: 150 ms QRS Duration: 108 ms Q-T Interval: 404 ms QTC Calculation(Bezet): 480 ms P [place]: 34 degrees Calculated R [place]: 117 degrees Calculated T [place]: 4 degrees Diagnosis Line: Sinus rhythm with Fusion complexes Diagnosis Line: Low voltage QRS Diagnosis Line: Left posterior fascicular block Diagnosis Line: Septal infarct (cited on or before 26-JAN-2017) Diagnosis Line: Abnormal ECG Diagnosis Line: When compared with ECG of 26-JAN-2017 18:13, Diagnosis Line: Fusion complexes are now Present Diagnosis Line: Confirmed by JOSE KULKARNI MD ([id number]) on 02/01/2017 Diagnosis Line: 3:29:03 PM INTERPRETING MD: CAYLA SUERO
--- NOTE | ~2017-01-26 | US77 ---
[facility] A Service of [facility] RADIOLOGY TEXT RESULTS PATIENT: RIA MIRANDA LOCATION: [address] : [birth year] UNIT #: [id number] AGE: [address]: Drake Turner MD SEX: F ORDER DR: [id number] [facility] [address] [facility]. [place], [place] [address] [id number] I MR#: [id number] Acc #: [id number] NAME: RIA MIRANDA : 1950 SEX: F STUDY DATE/TIME: 01/27/2017 14:38 UNIT: [facility] ROOM: [facility] STUDY DESCRIPTION: US Kidney Bilateral Complete Attending Physician: Drake Turner M.D. Referring Physician: Self Referral-Refer Use Only Ordering Physician: Mingo Thapa Jr., M.D. Primary Care Physician: Primary Care Physician No MEDICAL IMAGING REPORT This report is preliminary unless electronic signature is present EXAM Bilateral renal sonogram. HISTORY 66-year-old female with acute kidney injury. Creatinine 2.3. FINDINGS Real time examination demonstrates the right kidney to be of normal size, and echogenicity. Right kidney measures 10.9 cm pole to pole length. Left kidney measures normal size, shape and echogenicity. There may be minimal prominence of the renal collecting system. Question is raised of a possible mass lesion in the left perinephric region, but based on images submitted and its location, this most likely represents psoas musculature or most likely bowel. Villavicencio catheter noted within a partially decompressed bladder. IMPRESSION Essentially normal bilateral renal sonogram. Minimal prominence of left renal collecting system, but no significant hydro. Dictated by... Violet Beltran M.D. THIS IS AN ELECTRONICALLY VERIFIED REPORT Violet Beltran M.D. at 01/28/2017 10:05 AM Natividad TD: 01/28/2017 07:41 JOB #: [id number] [facility] A Service of [facility] RADIOLOGY TEXT RESULTS PATIENT: RIA MIRANDA LOCATION: [address] : [birth year] UNIT #: [id number] AGE: [address]: Drake Turner MD SEX: F ORDER DR: MEDICAL IMAGING REPORT Page 1 of 1 COPY
--- NOTE | ~2017-01-26 | CR72 ---
[facility] A Service of [facility] RADIOLOGY TEXT RESULTS PATIENT: RIA MIRANDA LOCATION: [address] : [birth year] UNIT #: [id number] AGE: [address]: Drake Turner MD SEX: F ORDER DR: [id number] [facility] [address] [facility]. [place], [place] [address] [id number] I MR#: [id number] Acc #: [id number] NAME: RIA MIRANDA : 1950 SEX: F STUDY DATE/TIME: 01/27/2017 13:13 UNIT: [facility] ROOM: [facility] STUDY DESCRIPTION: CR Chest Single View Portable Attending Physician: Drake Turner M.D. Referring Physician: Self Referral-Refer Use Only Ordering Physician: Clemente Craven M.D. Primary Care Physician: Primary Care Physician No MEDICAL IMAGING REPORT This report is preliminary unless electronic signature is present EXAM Portable chest, 01/27/2017 HISTORY 66-year-old female with post central line placement. COMPARISON 01/26/2017 FINDINGS Portable view of the chest demonstrates interval placement of a double-lumen catheter from a right jugular approach, distal tip near the cavoatrial junction. There is low lung volumes. Stable cardiomegaly. Pacemaker noted. Mild pulmonary vascular congestion. Continued right-sided volume loss with elevation of the right hemidiaphragm and a small right pleural effusion. No visible pneumothorax. Dictated by... Violet Beltran M.D. THIS IS AN ELECTRONICALLY VERIFIED REPORT Violet Beltran M.D. at 01/28/2017 10:03 AM JAMAAL/zac TD: 01/28/2017 04:54 JOB #: [id number] MEDICAL IMAGING REPORT Page 1 of 1 COPY
--- NOTE | ~2017-01-26 | CO ---
Unit #: [id number] #: [id number] Patient: RIA MIRANDA [id number] [address] [place], [place] [address] [id number] MR#: [id number] NAME: RIA MIRANDA ROOM: [facility] Age: 66 Sex: F Admission Date: 01/26/2017 : 1950 Attending Physician: Drake Turner M.D. Primary Care Physician: No Primary Care Physician CONSULTATION REPORT REASON FOR CONSULTATION Critical care management and respiratory failure. CHIEF COMPLAINT Shortness of breath. This patient basically is a 66-year-old female who has a past medical history significant for hypertension, hyperlipidemia, diabetes mellitus, hypothyroidism, likely COPD, cardiomyopathy, presents with a complaint of shortness of breath. Has been admitted with impression of sepsis. Is currently in acute renal failure. I am seeing the patient at bedside. Dialysis catheter has been requested and I will place one. I am seeing her at bedside. She has been complaining of shortness of breath. Denies any chest pain. No nausea, vomiting, diarrhea. REVIEW OF SYSTEMS Unobtainable. Patient on BiPAP. PHYSICAL EXAMINATION VITAL SIGNS: Temperature is 98, pulse 84, respirations 16, blood pressure 90/48. NEUROLOGICAL: She is awake, on BiPAP. CVS: S1+ S2. RESPIRATIONS: Bilateral air entry, bilateral mild rhonchi. GI: Nontender, soft. Bowel sounds positive. EXTREMITIES: No edema. SKIN: No rashes, no ulcers. LYMPHATIC: No lymphadenopathy. DIAGNOSTIC STUDIES Labs and imaging have been reviewed. PAST MEDICAL HISTORY As described above. SOCIAL HISTORY Ex-smoker. No alcohol, no drug use. FAMILY HISTORY None as per record. MEDICATIONS As per JAN, has been reviewed. Unit #: [id number] #: [id number] Patient: RIA MIRANDA ALLERGIES Have been reviewed. ASSESSMENT AND PLAN 1. Acute hypoxic respiratory failure. 2. Volume overload. 3. Congestive heart failure exacerbation, rule out pneumonia. 4. Sepsis. 5. Leukocytosis. 6. Acute kidney injury. 7. Congestive heart failure with exacerbation. 8. Lactic acidosis. 9. Diabetes mellitus. 10. History of hypertension. 11. Recent automatic implantable cardioverter defibrillator placement. 12. Noncompliance. 13. Critically ill patient. Plan is to continue patient on BiPAP. Continue broad spectrum IV antibiotics. Diurese. Inotropic support. GI/DVT prophylaxis. IV fluid as per nephrology. The patient will be closely monitored. Please see orders for detailed plan. Thank you very much for this consultation. I will continue to follow the patient. Total critical care time is 75 minutes in direct critical care of this patient. Dictated by... Lola Rivas/thanh TD: 01/28/2017 05:47 JOB #: [id number] CONSULTATION REPORT Page 1 of 1 X Clemente Craven MD X CONSULTATION REPORT
--- NOTE | ~2017-01-26 | CO ---
Unit #: [id number] #: [id number] Patient: RIA MIRANDA [id number] [address] [address] [id number] I MR#: [id number] NAME: RIA MIRANDA ROOM: 329 Age: Sex: F Admission Date: 01/26/2017 : 1950 Attending Physician: Drake Turner M.D. Consultation Date: 02/05/2017 CONSULTATION REPORT REASON FOR CONSULT Abnormal thyroid function tests, hypothyroidism. REQUESTING PHYSICIAN Dr. Gonsalez. HISTORY OF PRESENT ILLNESS Ms. Silva is a 66-year-old -Macanese female, who has multiple medical problems including history of coronary artery disease, nonischemic cardiomyopathy with ejection fraction of 15% to 25%, AICD placement, history of chronic kidney disease, who was admitted initially on January 26 with the hypoxic respiratory failure, hypotension, and possible sepsis, and acute kidney injury. Patient has subsequently recovered very well. On her labs, her TSH is 88.42. I have been asked to see the patient for further evaluation. No history is available from the patient. She is confused. PAST MEDICAL HISTORY See HPI. Patient does have history of hypothyroidism in the past but I am not sure whether she was taking any medicines; however, last medication list shows that she had levothyroxine 25 mcg daily. PAST SURGICAL HISTORY 1. Hysterectomy. 2. Cardiac cath. MEDICATIONS List is reviewed. Synthroid - she was taking 25 mcg daily but has been switched to the 200 mcg daily. ALLERGIES None. SOCIAL HISTORY No tobacco or alcohol. FAMILY HISTORY Unremarkable. PHYSICAL EXAMINATION GENERAL: She is confused, no acute distress. VITAL SIGNS: Vitals are stable. Blood pressure 115/86. HEENT: EOMI. Pupils equally reactive to light. Unit #: [id number] #: [id number] Patient: RIA MIRANDA NECK: Supple. No thyromegaly noted. CHEST: Good air entry. CARDIOVASCULAR: Regular rhythm. No murmurs. ABDOMEN: Soft, nontender. Bowel sounds positive. EXTREMITIES: No edema noted. DIAGNOSTIC STUDIES LABORATORY: Labs were reviewed. Her TSH is 88. Free T4 is 0.23. Free T3 is 2. ASSESSMENT 1. Primary hypothyroidism. 2. Cardiomyopathy with ejection fraction of 15% to 25%. 3. History of automated implantable cardioverter defibrillator placement. PLAN I am going to discontinue patient's 200 mcg Synthroid. Will change it to 50 mcg daily and titrate to 75 mcg daily after two weeks. Repeat thyroid function tests in four to six weeks. Dictated by... Lola Barahona/davin TD: 02/06/2017 09:15 JOB #: [id number] CONSULTATION REPORT Page 1 of 1 X Digna Lowe MD X CONSULTATION REPORT
--- NOTE | ~2017-01-26 | CO ---
Unit #: [id number] #: [id number] Patient: RIA MIRANDA [id number] [facility] [address] [facility]. [place], [place] [address] [id number] I MR#: [id number] NAME: RIA MIRANDA ROOM: 329 Age: 66 Sex: F Admission Date: 01/26/2017 : 1950 Attending Physician: Drake Turner M.D. Consultation Date: 02/03/2017 CONSULTATION REPORT REASON FOR CONSULTATION Mental status changes. PATIENT IDENTIFICATION This is a 66-year-old right-handed female, who was evaluated in room 329 at [facility]. SOURCE OF INFORMATION Essentially the medical records. The patient is too confused to give me any information. PROBLEM LIST 1. Nonobstructive coronary artery disease. 2. Cardiomyopathy with low ejection fraction of about 15% to 25%. 3. Diabetes. 4. Hypertension. 5. Chronic kidney disease. 6. She has AICD placement. 7. She has hypoxic respiratory failure. 8. Possible sepsis with positive blood cultures. She is being worked up for endocarditis also. She has GERD. She has COPD. She has hypothyroidism. She has diabetes mellitus type 2. She is a reformed smoker. She has pneumonia. She has lactic acidosis, acute on chronic systolic congestive heart failure with new numbers of 10% to 15% EF, acute renal failure with decreased output. 9. Hypomagnesemia. 10. Anemia. HISTORY OF PRESENT ILLNESS This is a 66-year-old female, who is actually very sick. She has a lot of medical issues and she had decreased level of consciousness and some myoclonus that is why Neurology consultation was obtained. She went for head CT, which showed some chronic small vessel type changes. She cannot get an MRI. There is no hemorrhage. She is arousable. She is actually unable even tell me her name. She did tell me she was in the hospital. She has multifocal myoclonus. She is following some simple commands. Nobody witnessed the seizure. No rolling eye movements. No neck stiffness. Nothing suggesting meningitis though she is on significant supportive Unit #: [id number] #: [id number] Patient: RIA MIRANDA care. Cardiology and ID are seeing her. PAST MEDICAL HISTORY As discussed above. PAST SURGICAL HISTORY As discussed above. ALLERGIES None. MEDICATIONS Home medications reported were Advair, Combivent, aspirin, Lipitor, Coreg, digoxin, furosemide, NovoLog, Levemir, levothyroxine, lisinopril, magnesium oxide, Protonix, Santyl. Medications here, please refer to the MAR. FAMILY HISTORY No primary neurologic issue. SOCIAL HISTORY The patient apparently is a reformed smoker. There is no alcohol or drug use. REVIEW OF SYSTEMS Really could not be obtained because she is too encephalopathic to give me any information. PHYSICAL EXAMINATION VITAL SIGNS: Temperature 98 degrees Fahrenheit, pulse 74, respirations 18, blood pressure 122/47, O2 saturations were 91% to 100%, weight of 160 pounds. NEUROLOGIC: The patient is obtunded. She does respond. She did tell me she was in hospital. She cannot tell me the date and day. She was even starting when telling me her own name. Really naming is questionable. She did follow commands. Cranial nerve examination, she responds to threats in the primary santiago. Pupils sluggish. Eye movements seem to be conjugate. No ptosis. No nystagmus. Sensation on face and scalp is present. I do not see any facial asymmetry. Hearing seemed to be intact. Tongue was midline. I could not visualize oropharynx or uvula. Some head turning was seen. No meningismus or neck stiffness was seen. Motor examination, she has decreased bulk and tone. Strength in the upper extremities were 4- and in the lower extremities 3/5. She has some wounds especially on the left side. Sensory examination intact for pain sensation. She withdraws. I could not get any reflexes. Toes are mute. Gait and coordination could not be otherwise evaluated. She was not really cooperative. DIAGNOSTIC STUDIES LABORATORY RESULTS: At 11:22, her pCO2 was 62, pH was 7.54. Random Unit #: [id number] #: [id number] Patient: RIA MIRANDA glucose was 169, BUN was 32, creatinine was 1.3, sodium was 134, potassium was 3.4, chloride was 77, CO2 was 47, magnesium was 1.5, alkaline phosphatase was 156. BNP on admission was 4651. Troponin was 0.09. Her TSH was 74.43. White count was 10.0, H and H of 8.5 and 27.5, platelet count was 93. Urinalysis, reviewed. IMAGING STUDIES: Head CT, reviewed. IMPRESSION This is a classic situation of multifocal toxic and metabolic encephalopathy. I do not see anything active neurologic going on. I cannot do an MRI. This do not look like seizures. I will follow her. I talked to her daughter and told her that because of comorbidities, I am very concerned about a poor prognostic picture, but we will do whatever needs to be done. Call me for any other questions, issues, or concerns. Further treatment will be based on our findings. Again looks like not primary, but secondary neurologic form with multifocal toxic and metabolic encephalopathy. Dictated by... Lola Esquivel/wai TD: 02/04/2017 06:18 JOB #: [id number] CONSULTATION REPORT Page 1 of 1 X Boston Shah MD X CONSULTATION REPORT
--- NOTE | ~2017-01-26 | CO ---
Unit #: [id number] #: [id number] Patient: SHIRA CARROLL [id number] [facility] [address] [facility]. [place], [place] [address] [id number] I MR#: [id number] NAME: SHIRA CARROLL ROOM: 329 Age: 66 Sex: F Admission Date: 01/26/2017 : 1950 Attending Physician: Drake Turner M.D. Consultation Date: 02/11/2017 CONSULTATION REPORT REASON FOR CONSULTATION Followup. DISCUSSION Ms. Shira Carroll is a 66-year-old female, seen in room 329, bed 1 at [facility] on 02/11/2017. The patient was sitting in a propped up position and working on crossword puzzle. The patient was able to answer questions appropriately, less confused, oriented in self and place. The patient did not require any seclusion holding or any p.r.n. medication. Making progress. The patient is tolerating medication fairly well. The patient's vital signs; temperature 99.1, pulse 95, respirations 16, blood pressure 132/69, oxygen saturation 95%. 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 The patient will be going to a [facility] when bed available. REVIEW OF SYSTEMS Complete review of systems is unremarkable. MENTAL STATUS EXAMINATION General appearance, the patient dressed casually. Attention span and concentration, fair. Speech, slow. Oriented in place and person. Mood and affect were sad, dysphoric, flat. Thought process, circumstantial. Thought content, guarded, paranoid, but denied any thoughts of harming self or others. Recent and remote memory, fair to poor. Language, fair. Fund of knowledge, fair to slightly impaired. Insight and judgment, fair to slightly impaired. DIAGNOSES 1. Mood disorder, not otherwise specified, F32.9. 2. Delirium, F05, improved. ASSESSMENT AND PLAN Advised to continue with current treatment on the inpatient unit. If needed, consider further adjustment of medication. Supportive psychotherapy and psychoeducation provided to the patient. Educated about benefits and side effects of medication and course and prognosis of illness. Please feel free to call if any questions, telephone #[phone]. Dictated by... Brandyn Lehman M.D. ALFONZO/wai Unit #: [id number] #: [id number] Patient: SHIRA CARROLL TD: 02/12/2017 03:13 JOB #: [id number] CONSULTATION REPORT Page 1 of 1 X Brandyn Lehman MD X CONSULTATION REPORT
--- NOTE | ~2017-01-26 | CO ---
Unit #: [id number] #: [id number] Patient: RIA MIRANDA [id number] [address] [address] [id number] I MR#: [id number] NAME: RIA MIRANDA ROOM: 329 Age: 66 Sex: F Admission Date: 01/26/2017 : 1950 Attending Physician: Drake Turner M.D. CONSULTATION REPORT REASON FOR CONSULTATION Anemia. HISTORY OF PRESENTING ILLNESS The patient actually was initially admitted on 01/26/2017 with respiratory failure. She has a history of coronary artery disease and recently had an AICD placement earlier this year. She also has a history of chronic kidney disease. We are currently seeing the patient for persistently low hemoglobin while here in the hospital. Hemoglobin is 7.1 two days ago and she then received a unit of packed cells and responded nicely to 8.1; however, dropped again today. At the present time, she denies any GI complaints including nausea, vomiting, abdominal pain, blood in the stool; however, states she is somewhat constipated. She reports having had a colonoscopy in the past; however, denies any previous EGD. She does state her colonoscopy was many years ago. PAST MEDICAL HISTORY Coronary artery disease, cardiomyopathy, diabetes, hypertension, hysterectomy, previous cardiac cath, dual-chamber AICD placement earlier this year. ALLERGIES None known. HOME MEDICATIONS Dobutamine, Lipitor, MAGnesium-Oxide, aspirin, Protonix, Bumex, Santyl, Synthroid, sliding scale insulin, vancomycin, Zosyn, metoprolol, Combivent. SOCIAL HISTORY No current tobacco, alcohol, or illicit drugs. FAMILY HISTORY Reviewed and noncontributory. REVIEW OF SYSTEMS A complete 10-point review of systems was completed and negative except as mentioned in the HPI. PHYSICAL EXAMINATION GENERAL: The patient is a pleasant 66-year-old Afro-Mauritian female who is somewhat dyspneic with talking. VITAL SIGNS: Temperature 99.1, pulse is 95, respirations 16, blood pressure is 132/69. HEENT: PERRLA. Unit #: [id number] #: [id number] Patient: RIA MIRANDA NECK: Supple. CARDIAC: S1 and S2. LUNGS: Clear to auscultation. ABDOMEN: Soft, rounded, nontender, nondistended. Positive bowel sounds. NEUROLOGIC: The patient is alert, awake, and oriented x3. DIAGNOSTIC STUDIES LABORATORY RESULTS: White count is 12.6, hemoglobin is 7.2, hematocrit is 22.6, and platelets are 197. Iron is 8, ferritin 100, transferrin is 199. ASSESSMENT AND PLAN 1. Anemia, acute on chronic. We will check occult stools for blood. Continue to monitor H and H. Transfuse as needed. Continue PPI. The patient will need an esophagogastroduodenoscopy; however, she has eaten this morning and we will be unable to complete it today. 2. Acute on chronic kidney disease. 3. Congestive heart failure. Thank you for this interesting consult. We will continue to follow along. Dictated by... Eloisa Murphy A.P.R.N. for Lola Dan/wai TD: 02/12/2017 05:12 JOB #: [id number] CONSULTATION REPORT Page 1 of 1 X X CONSULTATION REPORT
--- NOTE | ~2017-01-26 | CR72 ---
[facility] A Service of [facility] & [facility] RADIOLOGY TEXT RESULTS PATIENT: RIA MIRANDA LOCATION: [address] : [birth year] UNIT #: [id number] AGE: [address]: Drake Turner MD SEX: F ORDER DR: [id number] [facility] [address] [facility]. [place], [place] [address] [id number] I MR#: [id number] Acc #: [id number] NAME: RIA MIRANDA : 1950 SEX: F STUDY DATE/TIME: 01/26/2017 18:08 UNIT: [facility] ROOM: [facility] STUDY DESCRIPTION: CR Chest Single View Portable Attending Physician: Drake Turner M.D. Referring Physician: Self Referral-Refer Use Only Ordering Physician: Darío Lee D.O. Primary Care Physician: Primary Care Physician No MEDICAL IMAGING REPORT This report is preliminary unless electronic signature is present EXAM Portable chest HISTORY Shortness of air, fluid on lungs. Symptoms began 2 days ago. COMPARISON 11/27/2016 FINDINGS Portable view of the chest demonstrates cardiomegaly. There is prominence of the pulmonary vascular interstitium suggesting mild CHF. Loss of the right hemidiaphragm blunting the right CP angle compatible with a small right pleural effusion which is new from November 2016. Dual lead pacemaker noted with leads intact. Arthritic changes seen in both shoulders. No pneumothorax. Overall findings compatible with [id number] CHF with a small right pleural effusion. Dictated by... Violet Beltran M.D. THIS IS AN ELECTRONICALLY VERIFIED REPORT Violet Beltran M.D. at 01/27/2017 10:52 PM JAMAAL/kana TD: 01/27/2017 10:37 JOB #: [id number] MEDICAL IMAGING REPORT Page 1 of 1 COPY
--- NOTE | ~2017-01-26 | FU ---
[facility] Nutrition Therapy DATE: 02/12/17 Patient: RIA MIRANDA Physician: LILIANA Address: [address] Room/Bed: [address] [place] [address], Zip: [place] [address] Admit Date: 01/26/17 Date of : [birth year] Height: 5 6 Weight: 185 84 NUTRITION MONITORING/FOLLOW-UP: Reason: Follow up Anthropometrics: Wt 02/12: 84 kg Labs: Na+ 133 Cl- 96 Gluc 126 BUN 57 Accuchecks 126-277 GFR 49.2 Meds: Spironolactone, MgSO4, KCl, levemir, lipitor, mag-ox, protonix, novolog, levothroid, zofran, miralax I&O's: 2220/660, last BM 02/12 Skin: Wound left medial foot Edema: BLE/ pedal 1+ Generalized- BUE/ Hands Diet: Consistent carbohydrate/ 2 gram Na+ diet/ 1500 mL fluid restriction Assessment: Chart reviewed, events noted. RD spoke with the pt at bedside. Pt reportedly has a great appetite, and consumes 100% of her meals. RD encouraged adequate protein intake for wound healing. Pt informed the RD of what she would like for dinner, and RD ordered dinner for the pt. RN also reports that the pt eats everything on her tray at meal times. Dx: Increased protein needs RT skin breakdown, pressure ulcers AEB delayed wound healing. Intervention: 1. Continue current diet Monitoring, Evaluation and Goals: 1. Oral intake; tolerate >75% meals 2. Labs; WNL 3. Weight; preserve lean body mass 4. Skin; promote healing Recommendations: 1. Continue current diet with fluid restriction per MD orders. 2. Add MVI with minerals for wound healing support. [facility] Nutrition Therapy DATE: 02/12/17 Patient: RIA MIRANDA Physician: LILIANA Address: [address] Room/Bed: [address] [place] [address], Zip: [place] [address] Admit Date: 01/26/17 Date of : [birth year] Height: 5 6 Weight: 185 84 Status: Pt is at mild nutritional risk. Respectfully, MARZENA POLK, RD, LD [facility] cc: client file
--- NOTE | ~2017-01-26 | CO ---
Unit #: [id number] #: [id number] Patient: SHIRA CARROLL [id number] [facility] [address] [place], [place] [address] [id number] I MR#: [id number] NAME: SHIRA CARROLL ROOM: 329 Age: 66 Sex: F Admission Date: 01/26/2017 : 1950 Attending Physician: Drake Turner M.D. Consultation Date: 01/31/2017 CONSULTATION REPORT REASON FOR CONSULTATION Confusion, agitation. DISCUSSION Miss Shira [place] is a 66-year-old female seen in bed 14 in CCU-3 at [facility]. Patient was admitted on January 26, 2017, due to acute hypoxic respiratory failure, pneumonia, and sepsis. Patient is unable to give any reliable information. Confusion, agitation. Patient was extremely agitated initially and was started on Haldol which was stopped because patient was lethargic after that. Patient does not require any seclusion or any restraint at this time. Cooperative and redirectable but still confused and unable to give any coherent history. PAST PSYCHIATRIC HISTORY Unavailable at this time. PAST MEDICAL HISTORY 1. Coronary artery disease. 2. Nonischemic cardiomyopathy. 3. Diabetes. 4. Hypertension. 5. Chronic knee pain. MEDICATIONS 1. Dobutamine. 2. Lipitor. 3. Magnesium oxide. 4. Aspirin. 5. Protonix. 6. Bumex. 7. Synthroid. ALLERGIES No known drug allergies. FAMILY HISTORY Unavailable. SOCIAL HISTORY No known history of any abuse or any substance abuse. REVIEW OF SYSTEMS Complete review of systems is remarkable for confusion. Unit #: [id number] #: [id number] Patient: SHIRA CARROLL MENTAL STATUS EXAMINATION General appearance: Patient is dressed casually in hospital attire. Attention span and concentration poor. Speech minimal. Orientation unable to assess. Mood and affect were flat. Thought process and thought content disorganized. Recent and remote memory unable to assess. Language unable to assess. Fund of knowledge impaired. Insight and judgment impaired. DIAGNOSES PSYCHIATRIC: Delirium F05. SECONDARY DIAGNOSES: Deferred. MEDICAL DIAGNOSES: Please refer to History and Physical. STRESSORS: Psychosocial stressors. ASSESSMENT AND PLAN 1. After reviewing chart and patient's condition, recommending to discontinue Haldol at this time and monitor patient's mood and behavior. If needed, consider a low dose of Haldol. Patient is still confused and seems to be in a delirious state. We will continue to follow. If needed, consider further change of medication. 2. Please feel free to call with any questions at [phone]. 1. Dictated by... Lola Nair/dae TD: 02/03/2017 16:52 JOB #: [id number] CONSULTATION REPORT Page 1 of 1 X Brandyn Lehman MD X CONSULTATION REPORT
--- NOTE | ~2017-01-26 | CR72 ---
[facility] A Service of [facility] RADIOLOGY TEXT RESULTS PATIENT: RIA MIRANDA LOCATION: [address]14 : [birth year] UNIT #: [id number] AGE: [address]: Drake Turner MD SEX: F ORDER DR: [id number] [facility] [address] [facility]. [place], [place] [address] [id number] I MR#: [id number] Acc #: [id number] NAME: RIA MIRANDA : 1950 SEX: F STUDY DATE/TIME: 01/30/2017 3:30 UNIT: [facility] ROOM: [facility] STUDY DESCRIPTION: CR Chest Single View Portable Attending Physician: Drake Turner M.D. Referring Physician: Self Referral-Refer Use Only Ordering Physician: Clmeente Craven M.D. Primary Care Physician: Primary Care Physician No MEDICAL IMAGING REPORT This report is preliminary unless electronic signature is present EXAM Frontal chest 01/30/17 INDICATIONS Respiratory failure. Congestive heart failure. Symptoms 4 days. TECHNIQUE Frontal chest compared with 01/29/2017 FINDINGS Cardiac silhouette is enlarged but stable. Preexisting tubes and lines are in satisfactory position. Lung volumes remain low. There is bronchovascular crowding versus mild central vascular congestion. Left base atelectasis or infiltrate and small left effusion present. No pneumothorax. IMPRESSION 1. Tubes and lines in satisfactory position. No pneumothorax. 2. Cardiomegaly with bronchovascular crowding versus mild central vascular congestion. 3. Left basilar atelectasis or infiltrate and small left effusion. Faint opacities in the right lung base not significantly changed. Dictated by... Vinicio Jacob M.D. THIS IS AN ELECTRONICALLY VERIFIED REPORT Vinicio Jacob M.D. at 01/30/2017 9:54 PM BRIANA/analia TD: 01/30/2017 08:30 [facility] A Service of [facility] RADIOLOGY TEXT RESULTS PATIENT: RIA MIRANDA LOCATION: [address] : [birth year] UNIT #: [id number] AGE: [address]: Drake Turner MD SEX: F ORDER DR: JOB #: [id number] MEDICAL IMAGING REPORT Page 1 of 1 COPY
--- NOTE | ~2017-01-26 | CR63 ---
[facility] A Service of [facility] RADIOLOGY TEXT RESULTS PATIENT: RIA MIRANDA LOCATION: [facility] 329-01 : [birth year] UNIT #: [id number] AGE: [address]: Drake Turner MD SEX: F ORDER DR: [id number] [place] [address] [facility]. [place], [place] [address] [id number] I MR#: [id number] Acc #: [id number] NAME: RIA MIRANDA : 1950 SEX: F STUDY DATE/TIME: 02/08/2017 13:01 UNIT: A U [facility]OM[facility] STUDY DESCRIPTION: CR Chest 2 View Attending Physician: Drake Turner M.D. Referring Physician: Marlys Self Referred Ordering Physician: Santo Edwards M.D. Primary Care Physician: Physician No Primary Care MEDICAL IMAGING REPORT This report is preliminary unless electronic signature is present EXAM Chest 2 views 02/08/2017 1301 hours CLINICAL HISTORY 66-year-old with history of congestive heart failure and coronary artery disease complaining of shortness of air since 01/26/2017. COMPARISON 02/02/2017 FINDINGS Upright PA and lateral views of the chest demonstrates stable moderate cardiomegaly and pacer device. Right PICC line tip is in the SVC. Right IJ catheter has been removed. Lungs are moderately well expanded and clear. No effusions are seen. IMPRESSION 1. Stable cardiomegaly, pacer device, and right PICC line. 2. Right IJ catheter removed. No pneumothorax. 3. No acute pulmonary or pleural findings. Dictated by... Gabriella Triana M.D. THIS IS AN ELECTRONICALLY VERIFIED REPORT Gabriella Triana M.D. at 02/10/2017 6:57 PM NATHALIE/robyn TD: 02/08/2017 15:07 JOB #: [id number] MEDICAL IMAGING REPORT [facility] A Service of [facility] RADIOLOGY TEXT RESULTS PATIENT: RIA MIRANDA LOCATION: [facility] 329-01 : [birth year] UNIT #: [id number] AGE: [address]: Drake Turner MD SEX: F ORDER DR: Page 1 of 1 COPY
--- NOTE | ~2017-01-26 | CR72 ---
[facility] A Service of [facility] RADIOLOGY TEXT RESULTS PATIENT: RIA MIRANDA LOCATION: [address] : [birth year] UNIT #: [id number] AGE: [address]: Drake Turner MD SEX: F ORDER DR: [id number] [facility] [address] [facility]. [place], [place] [address] [id number] I MR#: [id number] Acc #: [id number] NAME: RIA MIRANDA : 1950 SEX: F STUDY DATE/TIME: 01/28/2017 6:06 UNIT: [facility] ROOM: [facility] STUDY DESCRIPTION: CR Chest Single View Portable Attending Physician: Drake Turner M.D. Referring Physician: Self Referral-Refer Use Only Ordering Physician: Clemente Craven M.D. Primary Care Physician: Primary Care Physician No MEDICAL IMAGING REPORT This report is preliminary unless electronic signature is present EXAM Portable chest x-ray 01/28/2017 HISTORY Short of air. Cough, edema. TECHNIQUE AP radiograph of chest presented COMPARISON 01/27/2017 FINDINGS Right internal jugular central venous catheter, right upper extremity approach PICC, cardiac pacemaker, all unchanged. Stable moderate to marked cardiac enlargement. Lungs well inflated. No significant change in appearance of the lungs. Airspace disease in the hilar and infrahilar regions bilaterally with nonspecific appearance which may include components of atelectasis and/or pneumonia. Small right pleural effusion. No pneumothorax. No suspicious nodule. No acute-appearing bony abnormality. Marked degenerative changes in the shoulders, left greater than right. Dictated by... Deon Alonso M.D. THIS IS AN ELECTRONICALLY VERIFIED REPORT Deon Alonso M.D. at 01/29/2017 6:04 PM JSK/kana TD: 01/28/2017 11:56 JOB #: [id number] [facility] A Service of [facility] RADIOLOGY TEXT RESULTS PATIENT: RIA MIRANDA LOCATION: [address] : [birth year] UNIT #: [id number] AGE: [address]: Drake Turner MD SEX: F ORDER DR: MEDICAL IMAGING REPORT Page 1 of 1 COPY
--- NOTE | ~2017-01-26 | A ---
[facility] Nutrition Therapy DATE: 01/28/17 Patient: RIA MIRANDA Physician: LILIANA Address: [address] Room/Bed: [address], Zip: [place] [address] Admit Date: 01/26/17 Date of : [birth year] Height: 5 6 Weight: 222 101 NUTRITIONAL ASSESSMENT: REASON: NPO IN ICU ASSESSMENT, ALSO ONE NUTRITION RISK PT RE: PRESSURE ULCER/NON-HEALING WOUND PMH: CHF, CAD, CKD, HYPOTHYROIDISM, NONISCHEMIC CARDIOMYOPATHY, DM, HTN, HLD Anthropometrics: 5'6", WT: 250# (114 KG) (PER PT), BMI: 40.3, 192%IBW -WEIGHTS HAVE RANGED 218-260# SINCE ADMIT Labs: GLU: 161, BUN: 33, CREAT: 2.1, CA+:7.6, ALB: 1.9, GFR: 27.5 Meds: NACL, LIPITOR, PROTONIX, SYNTHROID, NOVOLOG I/O & Bowel function: 5111/1556 Skin Integrity: PRESSURE ULCER LOCATED (L) HEEL & (L) GREAT TOE; SKIN FOLDS ABD & GROIN AREA EDEMA: BUE GENERALIZED EDEMA; BLE 2+ EDEMA Estimated Nutrition Needs: INCREASED NUTRIENT NEEDS 2' CURRENT CONDITION Assessment: CHART REVIEWED AND EVENTS NOTED. PT SEEN FOR NPO IN ICU + PRESSURE ULCER. PT AWAKE ON BIPAP AT TIME OF VISIT REPORTING DECREASED PO INTAKE 2' DECREASED APPETITE PAST 3 DAYS D/T "NOT FEELING WELL". PT REPORTS USUAL GOOD PO INTAKE AND APPETITE, NO C/O N/V/D. PT DENIES ANY RECENT WEIGHT LOSS OR ANY CHEWING OR SWALLOWING DIFFICULTIES. PLANS IN PLACE FOR PT TO BEGIN ICE CHIPS AND POSSIBLE LIQUID DIET LATER TODAY. RD ENCOURAGED SLOW GRADUAL PO INTAKE ONCE DIET ADVANCES, PT AGREED. PT REPORTED NO DIET QUESTIONS AT THIS TIME. RD TO FOLLOW. SEE RECOMMENDATIONS BELOW. Dx: INADEQUATE PROTEIN-ENERGY INTAKE R/T DX, CURRENT CONDITION AEB NPO STATUS, PT ON BIPAP. Intervention: 1. NPO Monitoring, Evaluation and Goals: 1. PO INTAKE; PROVIDE AND CONSUME ADEQUATE NUTRITION W/NO C/O N/V/D (PO>50%) 2. SKIN; PROMOTE SKIN HEALING 3. LABS; WNL 4. WEIGHTS; PROMOTE GRADUAL WEIGHT LOSS MONITOR: [facility] Nutrition Therapy DATE: 01/28/17 Patient: RIA MIRANDA Physician: LILIANA Address: [address] Room/Bed: [address], Zip: [place] [address] Admit Date: 01/26/17 Date of : [birth year] Height: 5 6 Weight: 222 101 -DIET ADVANCEMENT -PO INTAKE/APPETITE -LABS -WOUND CARE Recommendations: 1. ONCE MEDICALLY FEASIBLE, BEGIN WITH CLEARS AND ADVANCE DIET TOLERATED TO CC+HH DIET 2' PMH, HIGH BMI NOTED 2. IF PO INTAKE <50%, RECOMMEND TO ADD SUPPLEMENTS DAILY (GLUCERNA BID?) 3. PLEASE ADD 100-200 MG VITAMIN C DAILY + MVI W/MINERAL DAILY TO PROMOTE WOUND HEALING 4. APPRECIATE FAMILY AND STAFF TO ENCOURAGE ADEQUTAE KCAL AND PROTEIN INTAKE RD WILL F/U PER PROTOCOL PT IS MILD/MODERATELY COMPROMISED Respectfully, YOLIE GARCIA MS, RD, LD [employer] [facility] [employer] cc: client file
--- NOTE | ~2017-01-26 | CO ---
Unit #: [id number] #: [id number] Patient: SHIRA CARROLL [id number] [facility] [address] [facility]. [place], [place] [address] [id number] MR#: [id number] NAME: SHIRA CARROLL ROOM: [facility] Age: 66 Sex: F Admission Date: 01/26/2017 : 1950 Attending Physician: Drake Turner M.D. Consultation Date: 02/01/2017 CONSULTATION REPORT REASON FOR CONSULTATION Followup. DISCUSSION Miss Shira Carroll is a 66-year-old female seen in bed 14 in CCU-3 at [facility]. Patient was initially on Haldol which was discontinued. Patient is currently on no psychotropic medication but still is lethargic and confused. She did not require any p.r.n. medication last night or this evening. Patient is currently on Spironolactone, Lovenox, potassium, and Levemir. Patient is unable to give any reliable information. REVIEW OF SYSTEMS Complete review of systems is unremarkable. MENTAL STATUS EXAMINATION General appearance: Patient is dressed casually in hospital attire and is somewhat anxious. Her attention span and concentration are poor. Speech poor. Orientation unable to assess. Mood and affect were labile. Thought process was incoherent and thought content unable to assess. Recent and remote memory poor. Language minimal speech. Fund of knowledge poor. Insight and judgment impaired. DIAGNOSIS Delirium F05. ASSESSMENT AND PLAN 1. Advised at this time to continue with the current medication. Haldol was discontinued. Patient did not have any aggressive behavior last night, but if needed, consider further adjustment of medication. We will continue to monitor patient's mood and behavior and if needed, consider a low dose of Haldol. 2. Please feel free to call with any questions at [phone]. 1. Dictated by... Lola Nair/dae TD: 02/03/2017 15:48 JOB #: [id number] Unit #: [id number] #: [id number] Patient: SHIRA CARROLL CONSULTATION REPORT Page 1 of 1 X Brandyn Lehman MD CONSULTATION REPORT
--- NOTE | ~2017-01-26 | CO ---
Unit #: [id number] #: [id number] Patient: RIA MIRANDA [id number] [address] [address] [id number] MR#: [id number] NAME: RIA MIRANDA ROOM: [facility] Age: 66 Sex: F Admission Date: 01/26/2017 : 1950 Attending Physician: Drake Turner M.D. Primary Care Physician: Jamee Primary Care Physician Consultation Date: 01/29/2017 CONSULTATION REPORT REASON FOR CONSULTATION Positive blood cultures. HISTORY OF PRESENT ILLNESS This is a 66-year-old female who is currently on the BiPAP and is able to give limited history. The patient's chart has been reviewed and discussed with the ICU staff. There is no family currently at the bedside. The patient was presenting to the hospital after one week complaint of shortness of air and weakness, found to have acute hypoxic respiratory failure, hypertension, leukocytosis and elevated lactic acid. The patient was admitted to the ICU. She was placed on BiPAP and she is currently remaining on a dobutamine and dopamine drip. The patient's workup revealed leukocytosis of 30,000 which has since improved and elevated procalcitonin as well at 30 and blood cultures that are now showing MRSA. Infectious disease was consulted to evaluate this patient. She was placed on vancomycin and Zosyn. The patient was also noted to have some acute renal failure with creatinine around 2. PAST MEDICAL HISTORY Includes: 1. Nonobstructive coronary artery disease. 2. Non-ST cardiomyopathy with an ejection fraction of 15-25%. 3. Diabetes. 4. Hypertension. 5. Chronic knee pain. PAST SURGICAL HISTORY Includes: 1. Hysterectomy. 2. Cardiac cath. 3. AICD placement. ALLERGIES No known allergies. MEDICATIONS Vancomycin and Zosyn. For other medications, please refer to patient's MAR. SOCIAL HISTORY The patient has no evidence of tobacco, alcohol or drug use. REVIEW OF SYSTEMS Difficult to obtain as patient is currently on the BiPAP. However, she Unit #: [id number] #: [id number] Patient: RIA MIRANDA does report that she had no fever or chills. She does report some shortness of air. No significant cough. She denies any nausea, vomiting, diarrhea to me at this time and she reports chronic foot wounds that have been there for several months. PHYSICAL EXAMINATION VITAL SIGNS: Temperature 97.5 with a T-max this admission of 99.5. Pulse is 83, blood pressure 121/68 and respiratory rate is 20. GENERAL: This is a no apparent distress female who is currently on the BiPAP. HEENT/NECK: Her pupils are equal. Her neck is supple. CARDIOVASCULAR: S1, S2. Regular rate and rhythm. PULMONARY: Diminished in the bases with no significant wheezes, rhonchi or rales noted. ABDOMEN: Positive bowel sounds. Soft and nontender. EXTREMITIES: Trace edema. There is a left foot wound that appears superficial; however, there is some draining purulence note near her great toe. No drainage near her heel. There are no wounds on her backside. She has a PICC line in her upper extremity and an IJ line as well in her neck. DIAGNOSTIC STUDIES LABORATORY: BUN 38, creatinine 2.1, sodium 139, potassium 3.4, chloride 105, CO2 23, bilirubin 1.1, AST 70, ALT 66. CK total is 35, troponin 0.09, BNP 4651. Lactic acid is 3.9 which is improved from 7.2 on admission. Procalcitonin is 30.95. Random vancomycin level yesterday was 18.4. WBC 15 which is improved from 31.6 on admission. Hemoglobin 8.7, hematocrit 28.9, platelets 130. Urine for Strep pneumo antigen is negative. Urinalysis shows WBC 5-10, negative nitrites. MICROBIOLOGY DATA: Urine culture is currently showing less than 10,000 colonies and is insufficient for growth to suggest UTI. 01/26 blood cultures two of two ten minutes apart show MRSA with an RASHID to vancomycin of 1. IMAGING: CT scan of her chest shows small right pleural effusion with right basilar atelectasis with cardiomegaly that is worse since 2006 and no pericardial fluid. Ultrasound of her kidneys shows normal bilateral renal sonogram. No hydronephrosis. IMPRESSION This is a 66-year-old female with weakness and shortness of air x1 month, admitted to the hospital. Patient with known nonischemic cardiomyopathy with low ejection fraction. At this time, the patient has some acute hypoxic respiratory failure who is currently maintained on BiPAP and is most suggestive of cardiac issues rather than pneumonia; however, difficult to exclude. Patient is not having any productive sputum and at this time has no evidence of aspiration. Would recommend to change Zosyn to cefepime. The patient's main IDSU appears to be MRSA in the blood. At Unit #: [id number] #: [id number] Patient: RIA MIRANDA this time, source possibly includes her left foot and will need CT scan imaging when patient is more stable from a respiratory standpoint to rule out any osteomyelitis or fluid collection. The patient also has a dual chamber pacemaker and patient has a negative echocardiogram at this time but will also need a STEVENSON to rule out pacemaker endocarditis. Will recommend at this time to repeat blood cultures x2 thirty minutes apart. Will continue vancomycin. Will check routine lab work in the morning including a CBC and BMP. Will also check a CRP and sed rate as well. Will place patient in contact isolation and will ask the cardiac staff to evaluate for a STEVENSON. Thank you for allowing us to participate in the care of this patient and further recommendations to follow pending patient's clinical course. Dictated by... Sabrina LoboP.R.N. for Jeancarlos Bonilla M.D. DEDRICK/thanh TD: 01/29/2017 07:42 JOB #: [id number] CONSULTATION REPORT Page 1 of 1 X X CONSULTATION REPORT
--- NOTE | ~2017-01-26 | CR63 ---
[facility] A Service of [facility] RADIOLOGY TEXT RESULTS PATIENT: RIA MIRANDA LOCATION: [facility] 329-01 : [birth year] UNIT #: [id number] AGE: [address]: Drake Turner MD SEX: F ORDER DR: [id number] [facility] [address] [facility]. [place], [place] [address] [id number] I MR#: [id number] Acc #: [id number] NAME: RIA MIRANDA : 1950 SEX: F STUDY DATE/TIME: 02/02/2017 10:40 [facility] ROOM: [facility] STUDY DESCRIPTION: CR Chest 2 View Attending Physician: Drake Turner M.D. Referring Physician: Marlys Self Referred Ordering Physician: Drake Turner M.D. Primary Care Physician: No Primary Care Physician MEDICAL IMAGING REPORT This report is preliminary unless electronic signature is present EXAM 2-view chest INDICATIONS Shortness of air. Congestive heart failure. FINDINGS Single portable AP view of the chest compared to 02/01/2017. Support lines and tubes remain in place. The heart is enlarged. Mild pulmonary vascular congestion is unchanged. No pneumothorax. IMPRESSION No interval change Dictated by... Moi Cardona M.D. THIS IS AN ELECTRONICALLY VERIFIED REPORT Moi Cardona M.D. at 02/03/2017 10:42 AM SANTO/susan TD: 02/03/2017 01:50 JOB #: [id number] MEDICAL IMAGING REPORT Page 1 of 1 COPY
--- NOTE | ~2017-01-26 | CO ---
Unit #: [id number] #: [id number] Patient: RIA CARROLL [id number] [place], [place] [address] [id number] MR#: [id number] NAME: RIA CARROLL ROOM: [facility] Age: 66 Sex: F Admission Date: 01/26/2017 : 1950 Attending Physician: Drake Turner M.D. Primary Care Physician: Primary Care Physician No Consultation Date: 01/27/2017 CONSULTATION REPORT REASON FOR CONSULTATION Acute kidney injury. HISTORY OF PRESENT ILLNESS Ms. Carroll is a 66-year-old female with a significant cardiomyopathy, who was down at [facility] in November for decompensated heart failure and had AICD placed at that time. It looks like her discharge creatinine was 0.86. Left ventricular function was 10% to 15% by left ventricular angiogram and was slightly better than that by echo at 25% to 30%. The patient admits to noncompliance with her diuretics at home. It is difficult to get a history from her as she currently has a BiPAP in place and has been short of breath. She does admit to missing her diuretic pills and admits also to using Advil at home. Blood cultures have now come back positive as has her lactic acid level. Cardiology has seen her and placed her on a dobutamine drip and I will be adding a Bumex drip as well. Preliminary chest x-ray findings were consistent with an effusion and some pulmonary vascular congestion. Despite fluid boluses and diuretics IV she has not made any significant urine. The patient denies any vomiting or diarrhea. No history of kidney stones. Again, she was taking about 2 Advil every day before coming in. PAST MEDICAL HISTORY Significant for congestive heart failure, diabetes, hypertension, chronic knee pain, noncompliance, hyperlipidemia. PAST SURGICAL HISTORY Hysterectomy and AICD placement. HOME MEDICATIONS According to the med rec sheet are as follows: Advair inhaler, Combivent inhaler, baby aspirin daily, Lipitor 20 mg at bedtime, Coreg 3.125 mg b.i.d., Lanoxin 0.125 mg daily, furosemide 40 mg daily, sliding scale insulin Levemir insulin 9 units subcu daily before breakfast and 8 units at bedtime, Synthroid 25 mcg a day, lisinopril 40 mg a day, MAGnesium-Oxide daily, Protonix 40 mg a day, Santyl topical b.i.d. ALLERGIES She has no known allergies. FAMILY HISTORY She denies any knowledge of any family history of kidney disease or anyone on dialysis. SOCIAL HISTORY Unit #: [id number] #: [id number] Patient: RIA CARROLL The patient is a former smoker. She says she quit some time ago. No alcohol or drug abuse. REVIEW OF SYSTEMS A complete 12-point review of systems was attempted, but made difficult secondary to her shortness of breath and being on BiPAP. She has not reported any headaches or dizziness. She has had some low-grade temps at 99.9 and 100.7. No nosebleed. No sore throat or earache. No chest pain. Some cough. No hemoptysis reported. No bright red blood per rectum or melena. No dysuria or hematuria. She has had some swelling. No rashes or itching reported. No flank pain. No night sweats or hot flashes. No intolerance to heat or cold. No bleeding issues. She thinks she may have gained some weight at home recently. Unless otherwise indicated, the review of systems was not able to be obtained secondary to her being on BiPAP. PHYSICAL EXAMINATION VITAL SIGNS: T-max 100.7, pulse 84, respiratory rate 21, blood pressure 97/67. I's and O's were reviewed thus far here in the unit, very poor urine output. GENERAL: This is a 66-year-old female, who is alert, appears oriented, currently on BiPAP. HEENT: Head is atraumatic and normocephalic. Eyes show pale conjunctivae with no scleral icterus. No nasal drainage or nosebleed. Oropharynx appears dry. NECK: Shows no rigidity. HEART: Regular rate and rhythm with no significant murmur heard. No rub appreciated. LUNGS: Have scattered coarse breath sounds with the BiPAP machine slightly diminished at the bases. Breathing is mildly labored. ABDOMEN: Soft and nontender. Bowel sounds are present without masses. EXTREMITIES: No lower extremity clubbing or cyanosis. She has 1+ tense pitting edema below the knees bilaterally. SKIN: Dry without rashes. GENITOURINARY: Villavicencio catheter is in place, minimal nonbloody urine. MUSCULOSKELETAL: No joint effusions noted. No CVA tenderness to palpation. NEUROLOGICAL: Cranial nerves appear grossly intact with no gross motor deficits. LYMPHATIC: There is no neck or cervical lymphadenopathy. PSYCHIATRIC: Mood and affect appear normal. DIAGNOSTIC STUDIES LABORATORY RESULTS: Blood cultures are two out of two positive for gram-positive cocci in clusters. ABG this morning pH of 7.28, pCO2 of 45, pO2 of 244, bicarb 21. CBC showed a white count of 24, hemoglobin 8.5, and platelet count 175 with a left shift and bandemia. Procalcitonin was 30. Tobramycin level this morning 6.5. Lactic acid 3.9. Chemistry this morning; sodium 139, potassium 3.8, chloride 106, bicarb 22, glucose 295, BUN 31, creatinine 2.4. Lactic acid earlier was 5.8. CBC earlier showed a white count of 31,000. Magnesium level was 1.2. Last night at 6:25 admission creatinine was 2, again previous discharge creatinine at [facility] was less than 1. BNP was 4600. Admission lactic acid level 7.2. Initial ABG showed a pH of 7.25, pCO2 of 34, pO2 of 186, bicarb of 15. ASSESSMENT AND PLAN 1. Acute kidney injury. This looks to be prerenal azotemia versus acute tubular necrosis from sepsis syndrome and decompensated heart failure. Unit #: [id number] #: [id number] Patient: RIA CARROLL She was also using some Advil at home on a regular basis and she got some enalapril in the emergency room. Supportive care is in place with a support for blood pressure already given in the form of IV fluids with antibiotics in place for sepsis and dobutamine added for congestive heart failure. She is very ill at this time and may very well need dialysis. She says that she does not want to have dialysis, but there may not be an alternative unless she decides to go palliative. We will be sending off urine studies as well as bedside kidney ultrasound. We will need CVP monitoring and I will ask Dr. Craven to place a Shiley when he comes in today in case we need to do dialysis today. 2. Congestive heart failure, which is systolic in nature. Dobutamine has been added by Cardiology. With her respiratory issues, I will be adding a Bumex drip. 3. Sepsis syndrome with positive blood cultures. Vancomycin has been ordered and supportive care is in place. 4. Lactic acidosis, due to sepsis syndrome. 5. Diabetes. 6. History of hypertension. Certainly her THALIA inhibitor will be held. 7. Known cardiomyopathy and coronary artery disease with recent automatic implantable cardioverter-defibrillator placement. 8. History of noncompliance. 9. Low magnesium level. We will be sure to replace this today. 10. The patient is obviously very ill at this time with her underlying heart condition and now sepsis syndrome. She would be a poor long-term dialysis candidate with her heart failure. We will need central venous pressure monitoring to help us better assess her volume status as it is quite complex with her sepsis syndrome and cardiomyopathy, overall prognosis is poor. Dictated by... Mingo Thapa Jr., M.D. SJK/wai TD: 01/28/2017 00:27 JOB #: [id number] CONSULTATION REPORT Page 1 of 1 X Mingo Thapa MD X CONSULTATION REPORT
--- NOTE | ~2017-01-26 | CR126 ---
[facility] A Service of [facility] & [facility] RADIOLOGY TEXT RESULTS PATIENT: RIA MIRANDA LOCATION: C3A 329-01 : [birth year] UNIT #: [id number] AGE: [address]: Drake Turner MD SEX: F ORDER DR: [id number] [place] [address] [facility]. [place], [place] [address] [id number] MR#: [id number] Acc #: [id number] NAME: RIA MIRANDA : 1950 SEX: F STUDY DATE/TIME: 02/02/2017 17:23 UNIT: C3A U ROOM: 329 STUDY DESCRIPTION: CR Foot Complete Min 3 View Lt Attending Physician: Drake Turner M.D. Referring Physician: Marlys Self Referred Ordering Physician: Drake Turner M.D. Primary Care Physician: No Primary Care Physician MEDICAL IMAGING REPORT This report is preliminary unless electronic signature is present EXAM Left foot, 3 views COMPARISON None. INDICATION 66-year-old female with left foot pain for 1 week. FINDINGS Exam is limited by osteopenia. There is apparent subcutaneous gas seen at the medial aspect of the big toe. No convincing evidence of associated osteomyelitis. No radiopaque foreign body. There may also be subcutaneous gas in the region of the base of the first proximal phalanx. Bones are anatomically aligned. No convincing evidence of acute fracture. Mild enthesopathy at both poles of the calcaneal tubercle. Moderate osteophyte formation at the anterior aspect of the talar dome. There is a benign-appearing smooth periosteal reaction along the lateral cortex of the shaft of the fourth metatarsal of uncertain etiology, perhaps due to exertional stresses. This is also a finding which can be seen in hypertrophic pulmonary osteoarthropathy. IMPRESSION 1. No evidence of acute fracture, dislocation, or definite osteomyelitis. There is suspected subcutaneous gas in the first left toe. This is only seen on a single view and clinical correlation recommended. Search for a possible ulcer in this location is recommended. 2. Benign-appearing periosteal reaction with smooth margins, at the lateral aspect of the shaft of the fourth metatarsal. This may be due to exertional stresses or possibly this is a finding which can be seen in hypertrophic pulmonary osteoarthropathy, but the focal nature of the periosteal reaction would argue against hypertrophic osteoarthropathy. Clinical correlation recommended. [facility] A Service of [facility] & [facility] RADIOLOGY TEXT RESULTS PATIENT: RIA MIRANDA LOCATION: [place] [address] : [birth year] UNIT #: [id number] AGE: [address]: Drake Turner MD SEX: F ORDER DR: 3. Degenerative changes of the foot as described in the body of the report. Dictated by... Marek Stokes M.D. THIS IS AN ELECTRONICALLY VERIFIED REPORT Marek Stokes M.D. at 02/03/2017 9:19 PM NAOMY/robyn TD: 02/03/2017 13:43 JOB #: [id number] MEDICAL IMAGING REPORT Page 1 of 1 COPY
--- NOTE | ~2017-01-26 | CR72 ---
[facility] A Service of [facility] RADIOLOGY TEXT RESULTS PATIENT: RIA MIRANDA LOCATION: [address] : [birth year] UNIT #: [id number] AGE: [address]: Drake Turner MD SEX: F ORDER DR: [id number] [facility] [address] [facility]. [place], [place] [address] [id number] MR#: [id number] Acc #: [id number] NAME: RIA MIRANDA : 1950 SEX: F STUDY DATE/TIME: 01/29/2017 4:04 UNIT: [facility] ROOM: [facility] STUDY DESCRIPTION: CR Chest Single View Portable Attending Physician: Drake Turner M.D. Referring Physician: Self Referral-Refer Use Only Ordering Physician: Clemente Craven M.D. Primary Care Physician: Primary Care Physician No MEDICAL IMAGING REPORT This report is preliminary unless electronic signature is present EXAM Frontal chest, 01/29/2017 INDICATION Respiratory distress in a 66-year-old female. Symptoms 3 days. Congestive heart failure, hypertension. TECHNIQUE Frontal chest COMPARISON 01/28/2017 FINDINGS Right-sided PICC line and right-sided central line not significantly changed for technical factors. Left-sided pacemaker unchanged. The heart is enlarged. Lung volumes are low and there is new at least mild to early moderate vascular congestion and interstitial edema. Small effusions bilaterally. More confluent areas of edema, atelectasis or infiltrate in the lung bases bilaterally. IMPRESSION 1. Tubes and lines in satisfactory position. No pneumothorax. 2. Cardiomegaly with interval development of mild to moderate vascular congestion and interstitial edema. Small effusions and mid to lower lung zone atelectasis or infiltrates bilaterally. Dictated by... Vinicio Jacob M.D. THIS IS AN ELECTRONICALLY VERIFIED REPORT Vinicio Jacob M.D. at 01/29/2017 10:01 PM BRIANA/luis alberto [facility] A Service of [facility] RADIOLOGY TEXT RESULTS PATIENT: RIA MIRANDA LOCATION: [facility] CICCU3-14 : [birth year] UNIT #: [id number] AGE: [address]: Drake Turner MD SEX: F ORDER DR: TD: 01/29/2017 10:25 JOB #: [id number] MEDICAL IMAGING REPORT Page 1 of 1 COPY
--- NOTE | ~2017-01-26 | HP ---
Unit #: [id number] #: [id number] Patient: SHIRA CARROLL [id number] [address] [address] [id number] MR#: [id number] NAME: SHIRA CARROLL ROOM: [facility] Age: 66 Sex: F Admission Date: 01/26/2017 : 1950 Attending Physician: Drake Turner M.D. Referring Physician: Marlys Self Referred Primary Care Physician: No Primary Care Physician HISTORY AND PHYSICAL ADMISSION DIAGNOSES 1. Acute hypoxemic respiratory failure. 2. Pneumonia. 3. Sepsis with hypotension. 4. Acute systolic heart failure. 5. History of coronary artery disease. 6. History of nonischemic cardiomyopathy, status post automatic implantable cardioverter defibrillator. 7. Atypical chest pain. 8. Acute renal failure. 9. Leukocytosis. HISTORY OF PRESENT ILLNESS Ms. Shira Carroll is a 66-year-old -Citizen Of [place] female well known to me secondary to recent admission at [facility] where she was discharged at the end of November of this year. The patient is one with a history of nonobstructive coronary artery disease, nonischemic cardiomyopathy with EF around 15% to 25%. She is status post dual chamber AICD placement again earlier this year. She also has a history of chronic kidney disease and acute renal failure. She was discharged in November to subacute rehab. Apparently from there she went home and became severely weak and short of air, dyspneic. The patient is currently on continuous BiPAP secondary to acute hypoxemic respiratory failure. She is unable to provide any full history. The patient's daughter, who presents at the bedside, states that mother was doing okay until about a week ago. She was able to go to the jew and she was ambulating without any significant difficulties. However, over the last three to four days she became increasingly weak, nonambulatory and increasingly short of air and dyspneic. Initial evaluation generally found patient in acute hypoxemic respiratory failure. Chest x-ray was significant for CHF with the right pleural effusion. Set of cardiac enzymes negative. Initially, her white count was 30,000. Again, hypotensive. Elevated lactic acid and septic. She was started on sepsis protocol. She is on currently dobutamine and receiving also dopamine for hemodynamic support. Otherwise, there was no history of increasing cough, fever, chills, nausea, vomiting, diarrhea or abdominal pain. REVIEW OF SYSTEMS According to patient's daughter, a twelve point review of systems on this patient is basically negative except as above. PAST MEDICAL HISTORY Significant for: 1. History of coronary artery disease. Unit #: [id number] #: [id number] Patient: SHIRA CARROLL 2. Nonischemic cardiomyopathy. 3. Diabetes. 4. Hypertension. 5. Chronic knee pain. PAST SURGICAL HISTORY Significant for: 1. Hysterectomy. 2. Cardiac cath. 3. Dual chamber AICD placement. MEDICATIONS Current medications on this patient include: 1. Dopamine. 2. Dobutamine. 3. Lipitor. 4. Mag oxide. 5. Aspirin. 6. Protonix. 7. Bumex. 8. Santyl. 9. Synthroid. 10. Sliding scale insulin. 11. IV vanc. 12. Zosyn. 13. Tobra. 14. Bronchodilators with Combivent. ALLERGIES No known drug allergies. SOCIAL HISTORY No current history of tobacco, alcohol or illicit drugs. FAMILY HISTORY Unremarkable. PHYSICAL EXAMINATION GENERAL: The patient is a 66-year-old, ill-appearing female who is lethargic but easily arousable and awake on continuous BiPAP. VITAL SIGNS: Blood pressure currently 90/48, heart rate 84, respirations 21, temperature 99.4. HEENT: Head is atraumatic. Pupils equal, round, reactive to light and accommodation. Extraocular muscles intact. Oropharynx with missing teeth. NECK: Supple. No masses, no JVD, no bruits. CHEST: Diminished bilaterally. CARDIOVASCULAR SYSTEM: S1, S2. No murmurs. ABDOMEN: Soft, nontender, nondistended. EXTREMITIES: Lower extremities with some trace edema. NEUROLOGICAL EXAM: Very limited but patient moves all four extremities. No significant focal deficits. DIAGNOSTIC STUDIES LABORATORY: ABG shows pH of 7.279, pCO2 49, pO2 73.9. Chemistry - significant for BUN and creatinine of 34 and 2.3. Blood glucose 239, mag 1.2. PT/INR/PTT 16.7, 1.5 and 31.3. Unit #: [id number] #: [id number] Patient: SHIRA CARROLL Sets of cardiac enzymes negative with less than 0.05 troponin. White count down today to 24,000 from 30,000 the day before. H and H 8.5 and 28.8. ASSESSMENT AND PLAN 1. Acute hypoxemic respiratory failure: Continue BiPAP, continue bronchodilators. 2. Pneumonia which is healthcare-associated pneumonia: Continue triple IV antibiotics. Pulmonary follows. 3. Sepsis with hypotension: Continue hemodynamic support. Await final cultures. 4. Acute systolic heart failure: Continue dobutamine. 5. History of nonischemic cardiomyopathy, status post automatic implantable cardioverter defibrillator. 6. History of nonobstructive coronary artery disease: Continue per cardiology. 7. Atypical chest pain: Again, continue per cardiology. 8. Acute renal failure: Appreciate nephrology input. 9. Leukocytosis: Continue antibiotics for (1) . 10. Continue GI and DVT prophylaxis. Dictated by Lola Meyers/thanh TD: 01/28/2017 07:29 JOB #: [id number] HISTORY AND PHYSICAL Page 1 of 1 X Drake Turner MD X HISTORY AND PHYSICAL
[2017-01-26 18:08] LABS: ARTERIAL BLOOD GAS pH 7.255 (7.350-7.450)
[2017-01-26 18:09] LABS: ARTERIAL BLOOD GAS HCO3 15.4 mmol/L; ARTERIAL BLOOD GAS PCO2 34.7 mmHg (35.0-45.0)
[2017-01-26 18:11] LABS: ARTERIAL BLOOD GAS ALLEN TEST NORMAL; ARTERIAL BLOOD GAS ART SITE RIGHT RADIAL; ARTERIAL BLOOD GAS CARBOXY HB 1.5 %sat (0.0-9.0); ARTERIAL BLOOD GAS MET HB 0.6 %sat (0.0-2.0); ARTERIAL DRAW? YES
[2017-01-26 19:10] LABS: ALBUMIN SERUM 2.8 g/dL (3.5-5.0); BILIRUBIN, DIRECT 0.5 mg/dL (0.0-0.2); BILIRUBIN,INDIRECT 0.5 mg/dL (0.0-0.9); CALCIUM SERUM 8.1 mg/dL (8.4-10.2); GLOM FILT RATE Estimated 25.2 mL/min (>60); POTASSIUM 3.9 mmol/L (3.5-5.1); PROTEIN TOTAL SERUM 7.6 g/dL (6.0-8.3)
[2017-01-26 19:12] LABS: BASOPHIL% 0.1 % (0-2.5); HEMATOCRIT 31.7 % (35.0-45.0); HEMOGLOBIN 9.1 gm/dL (12.0-16.0); LYMPHOCYTE# 0.3 X10e3 (1.0-3.5); LYMPHOCYTE% 0.8 % (17.0-45.0); MEAN CELL VOLUME 78.8 FL (83-96); MEAN CORPUSCULAR HEMOGLOBIN 22.6 PG (28-34); MEAN CORPUSCULAR HGB CONC 28.7 g/dL (30-36); MEAN PLATELET VOLUME 9.6 FL (6.5-11.5); MONOCYTE# 0.5 X10e3 (0-1.0); MONOCYTE% 1.5 % (3.0-12.0); NEUTROPHIL# 30.8 X10e3 (1.5-7.1); NEUTROPHIL% 97.6 % (40-75); PLATELET COUNT 214 X10e3 (140-420); RED BLOOD COUNT 4.03 X10e (3.90-5.30); RED CELL DISTRIBUTION WIDTH 24.3 % (11.0-15.5); WHITE BLOOD COUNT 31.6 X10e3 (4.0-10.5)
[2017-01-26 19:14] LABS: DIFF IND YES
[2017-01-26 19:26] LABS: INR 1.5; PARTIAL THROMBOPLASTIN TIME 31.3 SECONDS (23.5-31.3); PROTHROMBIN TIME (PATIENT) 16.3 SECONDS (9.6-11.5)
[2017-01-26 19:39] LABS: POC - CKMB 1.8 ng/mL (0.0-7.9); POC - TROPONIN <0.05 ng/mL (<=0.05)
[2017-01-26 19:46] LABS: MICROCYTOSIS SL; PLATELET ESTIMATE NORMAL (NORMAL); POIKILOCYTOSIS MOD
[2017-01-26 19:48] LABS: BURR CELLS PRESENT; TEAR DROP CELLS PRESENT
[~2017-01-26 21:00] MED LIST: ADVAIR 250-501 EACH INH; ASPIRIN81 M2 PO; COLCHICINE0.6 M1 PO; COMBIVENT MININEB INH; COREG3.125 MG PO; FUROSEMIDE40 MG PO; LANOXIN125 MCG PO; LEVEMIR SUBQ; LEVEMIR100 UNITS/ SUBQ; LEVOTHYROXINE25 MCG PO; LIPITOR PO; LISINOPRIL20 MG PO; MAG-OX 400400 M1 PO; NOVOLOG100 UNITS/; PROTONIX PO; SANTYL15 G1 TOP
[2017-01-26 22:52] LABS: ARTERIAL BLOOD GAS HCO3 20.7 mmol/L; ARTERIAL BLOOD GAS PCO2 42.6 mmHg (35.0-45.0); ARTERIAL BLOOD GAS pH 7.295 (7.350-7.450)
[2017-01-26 22:53] LABS: ARTERIAL BLOOD GAS ALLEN TEST NORMAL; ARTERIAL BLOOD GAS ART SITE RIGHT RADIAL; ARTERIAL BLOOD GAS MET HB 0.4 %sat (0.0-2.0); ARTERIAL DRAW? YES
[2017-01-27 04:09] LABS: ARTERIAL BLD GAS O2 SATURATION 99.9 % (90.0-100.0); ARTERIAL BLOOD GAS ALLEN TEST NORMAL; ARTERIAL BLOOD GAS ART SITE RIGHT RADIAL; ARTERIAL BLOOD GAS HCO3 21.8 mmol/L; ARTERIAL BLOOD GAS MET HB 0.2 %sat (0.0-2.0); ARTERIAL BLOOD GAS PCO2 48.8 mmHg (35.0-45.0); ARTERIAL BLOOD GAS pH 7.258 (7.350-7.450); ARTERIAL DRAW? YES
[2017-01-27 04:21] LABS: BUN/CREATININE RATIO 12.91; CALCIUM SERUM 7.6 mg/dL (8.4-10.2); CREATININE SERUM 2.4 mg/dL (0.6-1.4); GLOM FILT RATE Estimated 23.4 mL/min (>60); POTASSIUM 3.8 mmol/L (3.5-5.1)
[2017-01-27 04:28] LABS: BASOPHIL% 0.1 % (0-2.5); EOSINOPHIL% 0.1 % (0.0-7.0); HEMATOCRIT 28.8 % (35.0-45.0); HEMOGLOBIN 8.5 gm/dL (12.0-16.0); LYMPHOCYTE# 0.6 X10e3 (1.0-3.5); LYMPHOCYTE% 2.5 % (17.0-45.0); MEAN CELL VOLUME 76.8 FL (83-96); MEAN CORPUSCULAR HEMOGLOBIN 22.6 PG (28-34); MEAN CORPUSCULAR HGB CONC 29.5 g/dL (30-36); MONOCYTE# 0.5 X10e3 (0-1.0); NEUTROPHIL# 22.9 X10e3 (1.5-7.1); NEUTROPHIL% 95.3 % (40-75); PLATELET COUNT 175 X10e3 (140-420); RED BLOOD COUNT 3.76 X10e (3.90-5.30); WHITE BLOOD COUNT 24.1 X10e3 (4.0-10.5)
[2017-01-27 04:29] LABS: DIFF IND YES
[2017-01-27 04:34] LABS: ANISOCYTOSIS MOD; PLATELET ESTIMATE NORMAL (NORMAL)
[2017-01-27 04:35] LABS: ACANTHOCYTES PRESENT; ELLIPTOCYTES PRESENT; TARGET CELLS SL; TEAR DROP CELLS PRESENT
[2017-01-27 04:36] LABS: HYPOCHROMIA SL
[2017-01-27 05:47] LABS: ARTERIAL BLOOD GAS ALLEN TEST NORMAL; ARTERIAL BLOOD GAS ART SITE LEFT RADIAL; ARTERIAL BLOOD GAS DELIVERY BIPAP 18/6; ARTERIAL BLOOD GAS HCO3 21.4 mmol/L; ARTERIAL BLOOD GAS MET HB 0.9 %sat (0.0-2.0); ARTERIAL BLOOD GAS PCO2 45.6 mmHg (35.0-45.0); ARTERIAL DRAW? YES
[2017-01-27 13:51] LABS: MAGNESIUM 1.2 mg/dL (1.6-3.0)
[2017-01-27 14:12] LABS: BUN/CREATININE RATIO 14.78; CALCIUM SERUM 7.6 mg/dL (8.4-10.2); CREATININE SERUM 2.3 mg/dL (0.6-1.4); GLOM FILT RATE Estimated 24.7 mL/min (>60); POTASSIUM 3.5 mmol/L (3.5-5.1)
[2017-01-27 14:30] LABS: ARTERIAL BLD GAS O2 SATURATION 93.4 % (90.0-100.0); ARTERIAL BLOOD GAS CARBOXY HB 1.2 %sat (0.0-9.0); ARTERIAL BLOOD GAS HCO3 22.9 mmol/L; ARTERIAL BLOOD GAS MET HB 0.9 %sat (0.0-2.0); ARTERIAL BLOOD GAS PO2 73.9 mmHg (80.0-100); ARTERIAL BLOOD GAS pH 7.279 (7.350-7.450)
[2017-01-27 14:31] LABS: ARTERIAL BLOOD GAS ALLEN TEST NORMAL; ARTERIAL BLOOD GAS ART SITE LEFT RADIAL; ARTERIAL BLOOD GAS DELIVERY BIPAP 18/6; ARTERIAL DRAW? YES
[2017-01-27 14:33] LABS: CK TOTAL 37 IU/L (26-140)
[2017-01-27 17:57] LABS: CK TOTAL 35 IU/L (26-140)
[2017-01-27 22:54] LABS: URINE APPEARANCE CLEAR; URINE BILIRUBIN NEG (NEG); URINE BLOOD TRACE (NEG); URINE COLOR YELLOW; URINE GLUCOSE NEG (NEG); URINE KETONE NEG (NEG); URINE LEUKOCYTE ESTERASE 1+ (NEG); URINE NITRATE NEG (NEG); URINE PROTEIN NEG (NEG); URINE SPECIFIC GRAVITY 1.009 (1.003-1.035); URINE UROBILINOGEN 0.2 MG/DL (NEG)
[2017-01-27 22:56] LABS: CULTURE INDICATED? YES; URINE BACTERIA AUWI NEG (NEGATIVE); URINE SQUAMOUS EPITHELIAL CELL NONE SEEN /[HPF]
[2017-01-28 04:33] LABS: BASOPHIL% 0.1 % (0-2.5); EOSINOPHIL% 0.3 % (0.0-7.0); HEMATOCRIT 28.2 % (35.0-45.0); HEMOGLOBIN 8.6 gm/dL (12.0-16.0); LYMPHOCYTE# 0.5 X10e3 (1.0-3.5); LYMPHOCYTE% 3.4 % (17.0-45.0); MEAN CELL VOLUME 75.6 FL (83-96); MEAN CORPUSCULAR HEMOGLOBIN 22.9 PG (28-34); MEAN CORPUSCULAR HGB CONC 30.3 g/dL (30-36); MEAN PLATELET VOLUME 9.1 FL (6.5-11.5); MONOCYTE# 0.5 X10e3 (0-1.0); MONOCYTE% 3.1 % (3.0-12.0); NEUTROPHIL# 14.6 X10e3 (1.5-7.1); NEUTROPHIL% 93.1 % (40-75); PLATELET COUNT 143 X10e3 (140-420); RED BLOOD COUNT 3.73 X10e (3.90-5.30); RED CELL DISTRIBUTION WIDTH 23.7 % (11.0-15.5); WHITE BLOOD COUNT 15.7 X10e3 (4.0-10.5)
[2017-01-28 04:36] LABS: DIFF IND NO
[2017-01-28 04:51] LABS: ARTERIAL BLOOD GAS HCO3 22.6 mmol/L; ARTERIAL BLOOD GAS PCO2 42.6 mmHg (35.0-45.0); ARTERIAL BLOOD GAS pH 7.333 (7.350-7.450)
[2017-01-28 04:52] LABS: ARTERIAL BLOOD GAS ALLEN TEST NORMAL; ARTERIAL BLOOD GAS ART SITE LEFT RADIAL; ARTERIAL BLOOD GAS MET HB 0.6 %sat (0.0-2.0); ARTERIAL DRAW? YES
[2017-01-28 04:53] LABS: ARTERIAL BLOOD GAS DELIVERY BIPAP 18/6 R16
[2017-01-28 05:08] LABS: ALBUMIN SERUM 1.9 g/dL (3.5-5.0); BILIRUBIN,TOTAL 1.1 mg/dL (0.2-2.0); BUN/CREATININE RATIO 15.71; CALCIUM SERUM 7.6 mg/dL (8.4-10.2); CREATININE SERUM 2.1 mg/dL (0.6-1.4); GLOM FILT RATE Estimated 27.5 mL/min (>60); MAGNESIUM 1.7 mg/dL (1.6-3.0); POTASSIUM 3.5 mmol/L (3.5-5.1); PROTEIN TOTAL SERUM 5.9 g/dL (6.0-8.3)
[2017-01-28 21:35] LABS: BUN/CREATININE RATIO 16.81; CALCIUM SERUM 7.9 mg/dL (8.4-10.2); CREATININE SERUM 2.2 mg/dL (0.6-1.4); POTASSIUM 3.7 mmol/L (3.5-5.1)
[2017-01-29 04:07] LABS: ARTERIAL BLD GAS O2 SATURATION 95.8 % (90.0-100.0); ARTERIAL BLOOD GAS CARBOXY HB 1.4 %sat (0.0-9.0); ARTERIAL BLOOD GAS HCO3 21.5 mmol/L; ARTERIAL BLOOD GAS MET HB 0.6 %sat (0.0-2.0); ARTERIAL BLOOD GAS PCO2 40.4 mmHg (35.0-45.0); ARTERIAL BLOOD GAS PO2 90.8 mmHg (80.0-100); ARTERIAL BLOOD GAS pH 7.333 (7.350-7.450)
[2017-01-29 04:13] LABS: ARTERIAL BLOOD GAS ALLEN TEST NORMAL; ARTERIAL BLOOD GAS ART SITE LEFT RADIAL; ARTERIAL BLOOD GAS DELIVERY BIPAP 18/6; ARTERIAL DRAW? YES
[2017-01-29 04:59] LABS: EOSINOPHIL% 0.2 % (0.0-7.0); HEMATOCRIT 28.9 % (35.0-45.0); HEMOGLOBIN 8.7 gm/dL (12.0-16.0); LYMPHOCYTE# 0.7 X10e3 (1.0-3.5); LYMPHOCYTE% 4.5 % (17.0-45.0); MEAN CELL VOLUME 76.2 FL (83-96); MEAN CORPUSCULAR HEMOGLOBIN 22.8 PG (28-34); MEAN PLATELET VOLUME 9.7 FL (6.5-11.5); MONOCYTE# 0.5 X10e3 (0-1.0); MONOCYTE% 3.2 % (3.0-12.0); NEUTROPHIL# 13.9 X10e3 (1.5-7.1); NEUTROPHIL% 92.1 % (40-75); PLATELET COUNT 130 X10e3 (140-420); RED BLOOD COUNT 3.79 X10e (3.90-5.30); RED CELL DISTRIBUTION WIDTH 24.3 % (11.0-15.5)
[2017-01-29 05:02] LABS: DIFF IND NO
[2017-01-29 06:51] LABS: BILIRUBIN,TOTAL 1.1 mg/dL (0.2-2.0); BUN/CREATININE RATIO 18.09; CALCIUM SERUM 7.7 mg/dL (8.4-10.2); CREATININE SERUM 2.1 mg/dL (0.6-1.4); GLOM FILT RATE Estimated 27.5 mL/min (>60); MAGNESIUM 1.9 mg/dL (1.6-3.0); PHOSPHOROUS 4.2 mg/dL (2.5-4.6); POTASSIUM 3.4 mmol/L (3.5-5.1); PROTEIN TOTAL SERUM 6.4 g/dL (6.0-8.3)
[2017-01-30 03:56] LABS: EOSINOPHIL% 0.2 % (0.0-7.0); HEMATOCRIT 28.2 % (35.0-45.0); HEMOGLOBIN 8.5 gm/dL (12.0-16.0); LYMPHOCYTE# 0.7 X10e3 (1.0-3.5); LYMPHOCYTE% 5.4 % (17.0-45.0); MEAN CELL VOLUME 75.2 FL (83-96); MEAN CORPUSCULAR HEMOGLOBIN 22.7 PG (28-34); MEAN CORPUSCULAR HGB CONC 30.1 g/dL (30-36); MEAN PLATELET VOLUME 9.5 FL (6.5-11.5); MONOCYTE# 0.4 X10e3 (0-1.0); MONOCYTE% 2.9 % (3.0-12.0); NEUTROPHIL# 11.2 X10e3 (1.5-7.1); NEUTROPHIL% 91.5 % (40-75); PLATELET COUNT 114 X10e3 (140-420); RED BLOOD COUNT 3.75 X10e (3.90-5.30); WHITE BLOOD COUNT 12.2 X10e3 (4.0-10.5)
[2017-01-30 03:57] LABS: DIFF IND NO
[2017-01-30 04:18] LABS: ALBUMIN SERUM 2.1 g/dL (3.5-5.0); BILIRUBIN,TOTAL 1.1 mg/dL (0.2-2.0); CALCIUM SERUM 7.9 mg/dL (8.4-10.2); GLOM FILT RATE Estimated 29.2 mL/min (>60); MAGNESIUM 1.7 mg/dL (1.6-3.0); PHOSPHOROUS 3.4 mg/dL (2.5-4.6); PROTEIN TOTAL SERUM 6.8 g/dL (6.0-8.3)
[2017-01-31 04:15] LABS: ALBUMIN SERUM 2.2 g/dL (3.5-5.0); BILIRUBIN,TOTAL 0.8 mg/dL (0.2-2.0); BUN/CREATININE RATIO 20.55; CALCIUM SERUM 8.2 mg/dL (8.4-10.2); CREATININE SERUM 1.8 mg/dL (0.6-1.4); GLOM FILT RATE Estimated 33.2 mL/min (>60); MAGNESIUM 1.7 mg/dL (1.6-3.0); PHOSPHOROUS 3.4 mg/dL (2.5-4.6); PROTEIN TOTAL SERUM 6.6 g/dL (6.0-8.3)
[2017-01-31 04:16] LABS: POTASSIUM 2.9 mmol/L (3.5-5.1)
[2017-01-31 10:44] LABS: ARTERIAL BLD GAS O2 SATURATION 97.8 % (90.0-100.0); ARTERIAL BLOOD GAS CARBOXY HB 0.9 %sat (0.0-9.0); ARTERIAL BLOOD GAS HCO3 33.2 mmol/L; ARTERIAL BLOOD GAS MET HB 0.5 %sat (0.0-2.0); ARTERIAL BLOOD GAS PCO2 49.8 mmHg (35.0-45.0); ARTERIAL BLOOD GAS pH 7.433 (7.350-7.450)
[2017-01-31 10:45] LABS: ARTERIAL BLOOD GAS ALLEN TEST NORMAL; ARTERIAL BLOOD GAS ART SITE LEFT RADIAL; ARTERIAL BLOOD GAS DELIVERY NASAL CANNULA; ARTERIAL DRAW? YES
[2017-02-01 04:12] LABS: ARTERIAL BLD GAS O2 SATURATION 95.8 % (90.0-100.0); ARTERIAL BLOOD GAS CARBOXY HB 1.1 %sat (0.0-9.0); ARTERIAL BLOOD GAS HCO3 40.5 mmol/L; ARTERIAL BLOOD GAS MET HB 0.5 %sat (0.0-2.0); ARTERIAL BLOOD GAS PO2 86.2 mmHg (80.0-100); ARTERIAL BLOOD GAS pH 7.488 (7.350-7.450)
[2017-02-01 04:25] LABS: ARTERIAL BLOOD GAS ALLEN TEST NORMAL; ARTERIAL BLOOD GAS ART SITE LEFT RADIAL; ARTERIAL BLOOD GAS DELIVERY NASAL CANNULA; ARTERIAL BLOOD GAS PCO2 53.4 mmHg (35.0-45.0); ARTERIAL DRAW? YES
[2017-02-01 05:33] LABS: BASOPHIL% 0.2 % (0-2.5); EOSINOPHIL% 0.4 % (0.0-7.0); HEMATOCRIT 26.5 % (35.0-45.0); HEMOGLOBIN 8.1 gm/dL (12.0-16.0); LYMPHOCYTE# 0.8 X10e3 (1.0-3.5); LYMPHOCYTE% 8.4 % (17.0-45.0); MEAN CELL VOLUME 73.7 FL (83-96); MEAN CORPUSCULAR HEMOGLOBIN 22.7 PG (28-34); MEAN CORPUSCULAR HGB CONC 30.7 g/dL (30-36); MEAN PLATELET VOLUME 9.9 FL (6.5-11.5); MONOCYTE# 0.3 X10e3 (0-1.0); MONOCYTE% 3.8 % (3.0-12.0); NEUTROPHIL% 87.2 % (40-75); RED BLOOD COUNT 3.59 X10e (3.90-5.30); RED CELL DISTRIBUTION WIDTH 23.4 % (11.0-15.5); WHITE BLOOD COUNT 9.2 X10e3 (4.0-10.5)
[2017-02-01 05:35] LABS: ALBUMIN SERUM 2.3 g/dL (3.5-5.0); BILIRUBIN,TOTAL 1.1 mg/dL (0.2-2.0); BUN/CREATININE RATIO 22.66; CALCIUM SERUM 8.4 mg/dL (8.4-10.2); CREATININE SERUM 1.5 mg/dL (0.6-1.4); GLOM FILT RATE Estimated 41.4 mL/min (>60); MAGNESIUM 1.8 mg/dL (1.6-3.0); PHOSPHOROUS 2.9 mg/dL (2.5-4.6); PROTEIN TOTAL SERUM 7.1 g/dL (6.0-8.3)
[2017-02-01 05:36] LABS: POTASSIUM 2.6 mmol/L (3.5-5.1)
[2017-02-01 06:44] LABS: PLATELET COUNT 92 X10e3 (140-420)
[2017-02-01 06:45] LABS: DIFF IND YES
[2017-02-01 06:54] LABS: SMUDGE CELLS 7 /100; TARGET CELLS MOD
[2017-02-01 06:55] LABS: ANISOCYTOSIS MOD; MICROCYTOSIS SL; OVALOCYTES PRESENT
[2017-02-01 06:56] LABS: HYPOCHROMIA SL
[2017-02-01 07:09] LABS: PLATELET ESTIMATE DECREASED (NORMAL)
[2017-02-02 06:43] LABS: EOSINOPHIL# 0.1 X10e3 (0-0.7); EOSINOPHIL% 0.7 % (0.0-7.0); HEMATOCRIT 27.5 % (35.0-45.0); HEMOGLOBIN 8.5 gm/dL (12.0-16.0); LYMPHOCYTE# 0.8 X10e3 (1.0-3.5); LYMPHOCYTE% 7.6 % (17.0-45.0); MEAN CORPUSCULAR HGB CONC 31.1 g/dL (30-36); MEAN PLATELET VOLUME 9.4 FL (6.5-11.5); MONOCYTE# 0.4 X10e3 (0-1.0); MONOCYTE% 3.6 % (3.0-12.0); NEUTROPHIL# 8.8 X10e3 (1.5-7.1); NEUTROPHIL% 88.1 % (40-75); PLATELET COUNT 93 X10e3 (140-420); RED BLOOD COUNT 3.72 X10e (3.90-5.30); RED CELL DISTRIBUTION WIDTH 23.8 % (11.0-15.5)
[2017-02-02 06:44] LABS: DIFF IND NO
[2017-02-02 07:17] LABS: ALBUMIN SERUM 2.1 g/dL (3.5-5.0); BILIRUBIN,TOTAL 0.9 mg/dL (0.2-2.0); BUN/CREATININE RATIO 25.83; CALCIUM SERUM 8.6 mg/dL (8.4-10.2); CREATININE SERUM 1.2 mg/dL (0.6-1.4); GLOM FILT RATE Estimated 54.2 mL/min (>60); MAGNESIUM 1.5 mg/dL (1.6-3.0); PROTEIN TOTAL SERUM 6.6 g/dL (6.0-8.3)
[2017-02-02 07:35] LABS: ARTERIAL BLD GAS O2 SATURATION 98.3 % (90.0-100.0); ARTERIAL BLOOD GAS ART SITE LEFT RADIAL; ARTERIAL BLOOD GAS DELIVERY NASAL CANNULA; ARTERIAL BLOOD GAS HCO3 51.6 mmol/L; ARTERIAL BLOOD GAS MET HB 0.5 %sat (0.0-2.0); ARTERIAL BLOOD GAS PCO2 62.4 mmHg (35.0-45.0); ARTERIAL BLOOD GAS pH 7.526 (7.350-7.450); ARTERIAL DRAW? YES
[2017-02-03 07:13] LABS: BILIRUBIN,TOTAL 0.8 mg/dL (0.2-2.0); BUN/CREATININE RATIO 24.61; CALCIUM SERUM 8.5 mg/dL (8.4-10.2); CREATININE SERUM 1.3 mg/dL (0.6-1.4); GLOM FILT RATE Estimated 49.2 mL/min (>60); MAGNESIUM 1.5 mg/dL (1.6-3.0); PHOSPHOROUS 2.1 mg/dL (2.5-4.6); POTASSIUM 3.4 mmol/L (3.5-5.1); PROTEIN TOTAL SERUM 6.5 g/dL (6.0-8.3)
[2017-02-03 11:33] LABS: ARTERIAL BLD GAS O2 SATURATION 95.5 % (90.0-100.0); ARTERIAL BLOOD GAS CARBOXY HB 1.1 %sat (0.0-9.0); ARTERIAL BLOOD GAS HCO3 53.2 mmol/L; ARTERIAL BLOOD GAS MET HB 0.7 %sat (0.0-2.0); ARTERIAL BLOOD GAS PO2 82.4 mmHg (80.0-100); ARTERIAL BLOOD GAS pH 7.541 (7.350-7.450)
[2017-02-03 11:34] LABS: ARTERIAL BLOOD GAS ALLEN TEST NORMAL; ARTERIAL BLOOD GAS ART SITE LEFT RADIAL; ARTERIAL BLOOD GAS DELIVERY NASAL CANNULA; ARTERIAL BLOOD GAS PCO2 62.1 mmHg (35.0-45.0); ARTERIAL DRAW? YES
[2017-02-04 04:25] LABS: ARTERIAL BLD GAS O2 SATURATION 96.2 % (90.0-100.0); ARTERIAL BLOOD GAS ALLEN TEST NORMAL; ARTERIAL BLOOD GAS ART SITE RIGHT RADIAL; ARTERIAL BLOOD GAS CARBOXY HB 1.3 %sat (0.0-9.0); ARTERIAL BLOOD GAS DELIVERY NASAL CANNULA; ARTERIAL BLOOD GAS HCO3 52.8 mmol/L; ARTERIAL BLOOD GAS MET HB 0.5 %sat (0.0-2.0); ARTERIAL BLOOD GAS PCO2 64.1 mmHg (35.0-45.0); ARTERIAL BLOOD GAS PO2 92.4 mmHg (80.0-100); ARTERIAL BLOOD GAS pH 7.524 (7.350-7.450); ARTERIAL DRAW? YES
[2017-02-04 06:11] LABS: BASOPHIL% 0.1 % (0-2.5); EOSINOPHIL# 0.1 X10e3 (0-0.7); EOSINOPHIL% 0.4 % (0.0-7.0); HEMATOCRIT 26.8 % (35.0-45.0); HEMOGLOBIN 8.3 gm/dL (12.0-16.0); LYMPHOCYTE# 0.8 X10e3 (1.0-3.5); LYMPHOCYTE% 6.7 % (17.0-45.0); MEAN CELL VOLUME 74.1 FL (83-96); MEAN CORPUSCULAR HEMOGLOBIN 22.9 PG (28-34); MEAN CORPUSCULAR HGB CONC 30.9 g/dL (30-36); MONOCYTE# 0.3 X10e3 (0-1.0); MONOCYTE% 2.9 % (3.0-12.0); NEUTROPHIL# 10.5 X10e3 (1.5-7.1); NEUTROPHIL% 89.9 % (40-75); RED BLOOD COUNT 3.62 X10e (3.90-5.30); RED CELL DISTRIBUTION WIDTH 23.5 % (11.0-15.5); WHITE BLOOD COUNT 11.6 X10e3 (4.0-10.5)
[2017-02-04 06:15] LABS: DIFF IND YES
[2017-02-04 06:34] LABS: ALBUMIN SERUM 2.1 g/dL (3.5-5.0); BILIRUBIN,TOTAL 0.8 mg/dL (0.2-2.0); BUN/CREATININE RATIO 25.83; CALCIUM SERUM 8.4 mg/dL (8.4-10.2); CREATININE SERUM 1.2 mg/dL (0.6-1.4); GLOM FILT RATE Estimated 54.2 mL/min (>60); POTASSIUM 3.5 mmol/L (3.5-5.1); PROTEIN TOTAL SERUM 6.9 g/dL (6.0-8.3)
[2017-02-04 09:22] LABS: ANISOCYTOSIS MOD; HYPOCHROMIA MOD; PLATELET ESTIMATE DECREASED (NORMAL); POIKILOCYTOSIS SL; SCHISTOCYTES PRESENT; TARGET CELLS SL
[2017-02-04 09:23] LABS: PAPPENHEIMER BODIES PRESENT; PLATELET COUNT 98 X10e3 (140-420)
[2017-02-05 10:21] LABS: HEMATOCRIT 27.4 % (35.0-45.0); HEMOGLOBIN 8.2 gm/dL (12.0-16.0); MEAN CELL VOLUME 75.2 FL (83-96); MEAN CORPUSCULAR HEMOGLOBIN 22.6 PG (28-34); MEAN CORPUSCULAR HGB CONC 30.1 g/dL (30-36); MEAN PLATELET VOLUME 9.7 FL (6.5-11.5); RED BLOOD COUNT 3.64 X10e (3.90-5.30); RED CELL DISTRIBUTION WIDTH 22.7 % (11.0-15.5); WHITE BLOOD COUNT 11.5 X10e3 (4.0-10.5)
[2017-02-05 10:48] LABS: BUN/CREATININE RATIO 28.33; CALCIUM SERUM 8.3 mg/dL (8.4-10.2); CREATININE SERUM 1.2 mg/dL (0.6-1.4); GLOM FILT RATE Estimated 54.2 mL/min (>60); MAGNESIUM 1.9 mg/dL (1.6-3.0); POTASSIUM 3.5 mmol/L (3.5-5.1)
[2017-02-05 14:46] LABS: FREE THYROXIN (T4) 0.23 ng/dL (0.58-1.64)
[2017-02-06 22:21] LABS: HEMATOCRIT 24.5 % (35.0-45.0); HEMOGLOBIN 7.5 gm/dL (12.0-16.0); MEAN CELL VOLUME 74.7 FL (83-96); MEAN CORPUSCULAR HGB CONC 30.8 g/dL (30-36); MEAN PLATELET VOLUME 9.3 FL (6.5-11.5); RED BLOOD COUNT 3.28 X10e (3.90-5.30); RED CELL DISTRIBUTION WIDTH 22.9 % (11.0-15.5)
[2017-02-06 22:37] LABS: CALCIUM SERUM 8.1 mg/dL (8.4-10.2); CREATININE SERUM 1.4 mg/dL (0.6-1.4); GLOM FILT RATE Estimated 44.9 mL/min (>60); MAGNESIUM 2.6 mg/dL (1.6-3.0); PHOSPHOROUS 2.5 mg/dL (2.5-4.6); POTASSIUM 4.5 mmol/L (3.5-5.1)
[2017-02-07 07:13] LABS: HEMOGLOBIN 7.3 gm/dL (12.0-16.0); MEAN CELL VOLUME 73.9 FL (83-96); MEAN CORPUSCULAR HEMOGLOBIN 22.5 PG (28-34); MEAN CORPUSCULAR HGB CONC 30.5 g/dL (30-36); MEAN PLATELET VOLUME 8.7 FL (6.5-11.5); RED BLOOD COUNT 3.25 X10e (3.90-5.30); RED CELL DISTRIBUTION WIDTH 22.8 % (11.0-15.5); WHITE BLOOD COUNT 12.4 X10e3 (4.0-10.5)
[2017-02-07 07:24] LABS: BUN/CREATININE RATIO 27.85; CALCIUM SERUM 8.2 mg/dL (8.4-10.2); CREATININE SERUM 1.4 mg/dL (0.6-1.4); GLOM FILT RATE Estimated 44.9 mL/min (>60); MAGNESIUM 2.4 mg/dL (1.6-3.0); POTASSIUM 4.6 mmol/L (3.5-5.1)
[2017-02-08 10:41] LABS: HEMOGLOBIN 8.5 gm/dL (12.0-16.0); MEAN CELL VOLUME 75.7 FL (83-96); MEAN CORPUSCULAR HGB CONC 30.3 g/dL (30-36); MEAN PLATELET VOLUME 9.2 FL (6.5-11.5); RED BLOOD COUNT 3.7 X10e (3.90-5.30); RED CELL DISTRIBUTION WIDTH 22.8 % (11.0-15.5); WHITE BLOOD COUNT 10.2 X10e3 (4.0-10.5)
[2017-02-08 10:46] LABS: ALBUMIN SERUM 2.3 g/dL (3.5-5.0); BILIRUBIN,TOTAL 0.8 mg/dL (0.2-2.0); BUN/CREATININE RATIO 29.28; CALCIUM SERUM 8.7 mg/dL (8.4-10.2); CREATININE SERUM 1.4 mg/dL (0.6-1.4); GLOM FILT RATE Estimated 44.9 mL/min (>60); MAGNESIUM 2.3 mg/dL (1.6-3.0); POTASSIUM 4.4 mmol/L (3.5-5.1); PROTEIN TOTAL SERUM 7.5 g/dL (6.0-8.3)
[2017-02-09 07:48] LABS: BUN/CREATININE RATIO 30.71; CALCIUM SERUM 8.5 mg/dL (8.4-10.2); CREATININE SERUM 1.4 mg/dL (0.6-1.4); GLOM FILT RATE Estimated 44.9 mL/min (>60); PHOSPHOROUS 2.6 mg/dL (2.5-4.6); POTASSIUM 4.2 mmol/L (3.5-5.1)
[2017-02-09 08:25] LABS: HEMATOCRIT 23.5 % (35.0-45.0); HEMOGLOBIN 7.1 gm/dL (12.0-16.0); MEAN CORPUSCULAR HEMOGLOBIN 22.9 PG (28-34); MEAN CORPUSCULAR HGB CONC 30.2 g/dL (30-36); MEAN PLATELET VOLUME 8.9 FL (6.5-11.5); RED BLOOD COUNT 3.1 X10e (3.90-5.30); RED CELL DISTRIBUTION WIDTH 22.9 % (11.0-15.5); WHITE BLOOD COUNT 11.6 X10e3 (4.0-10.5)
[2017-02-10 07:03] LABS: HEMATOCRIT 26.2 % (35.0-45.0); HEMOGLOBIN 8.1 gm/dL (12.0-16.0); MEAN CORPUSCULAR HEMOGLOBIN 24.7 PG (28-34); MEAN CORPUSCULAR HGB CONC 30.8 g/dL (30-36); MEAN PLATELET VOLUME 8.6 FL (6.5-11.5); RED BLOOD COUNT 3.27 X10e (3.90-5.30); RED CELL DISTRIBUTION WIDTH 23.2 % (11.0-15.5); WHITE BLOOD COUNT 12.2 X10e3 (4.0-10.5)
[2017-02-10 07:08] LABS: MEAN CELL VOLUME 80.1 FL (83-96)
[2017-02-10 07:47] LABS: BUN/CREATININE RATIO 37.14; CALCIUM SERUM 8.5 mg/dL (8.4-10.2); CREATININE SERUM 1.4 mg/dL (0.6-1.4); GLOM FILT RATE Estimated 44.9 mL/min (>60); POTASSIUM 4.4 mmol/L (3.5-5.1)
[2017-02-11 05:59] LABS: HEMATOCRIT 22.6 % (35.0-45.0); HEMOGLOBIN 7.2 gm/dL (12.0-16.0); MEAN CORPUSCULAR HEMOGLOBIN 25.3 PG (28-34); MEAN CORPUSCULAR HGB CONC 31.7 g/dL (30-36); MEAN PLATELET VOLUME 8.4 FL (6.5-11.5); RED BLOOD COUNT 2.83 X10e (3.90-5.30); WHITE BLOOD COUNT 12.6 X10e3 (4.0-10.5)
[2017-02-11 07:11] LABS: BUN/CREATININE RATIO 45.38; CALCIUM SERUM 8.6 mg/dL (8.4-10.2); CREATININE SERUM 1.3 mg/dL (0.6-1.4); GLOM FILT RATE Estimated 49.2 mL/min (>60); MAGNESIUM 2.1 mg/dL (1.6-3.0); POTASSIUM 4.9 mmol/L (3.5-5.1)
[2017-02-12 08:35] LABS: HEMATOCRIT 21.1 % (35.0-45.0); MEAN CELL VOLUME 81.3 FL (83-96); MEAN CORPUSCULAR HEMOGLOBIN 25.1 PG (28-34); MEAN CORPUSCULAR HGB CONC 30.9 g/dL (30-36); MEAN PLATELET VOLUME 8.3 FL (6.5-11.5); RED BLOOD COUNT 2.59 X10e (3.90-5.30); WHITE BLOOD COUNT 11.2 X10e3 (4.0-10.5)
[2017-02-12 08:53] LABS: HEMOGLOBIN 6.5 gm/dL (12.0-16.0)
[2017-02-12 09:06] LABS: BUN/CREATININE RATIO 43.84; CALCIUM SERUM 8.6 mg/dL (8.4-10.2); CREATININE SERUM 1.3 mg/dL (0.6-1.4); GLOM FILT RATE Estimated 49.2 mL/min (>60); MAGNESIUM 1.9 mg/dL (1.6-3.0); POTASSIUM 5.1 mmol/L (3.5-5.1)
[2017-02-13 05:54] LABS: HEMATOCRIT 21.1 % (35.0-45.0); MEAN CELL VOLUME 82.8 FL (83-96); MEAN CORPUSCULAR HEMOGLOBIN 26.5 PG (28-34); MEAN CORPUSCULAR HGB CONC 31.9 g/dL (30-36); MEAN PLATELET VOLUME 8.1 FL (6.5-11.5); RED BLOOD COUNT 2.55 X10e (3.90-5.30); RED CELL DISTRIBUTION WIDTH 23.3 % (11.0-15.5); WHITE BLOOD COUNT 10.8 X10e3 (4.0-10.5)
[2017-02-13 06:01] LABS: HEMOGLOBIN 6.8 gm/dL (12.0-16.0)
[2017-02-13 07:14] LABS: ALBUMIN SERUM 2.1 g/dL (3.5-5.0); BILIRUBIN,TOTAL 0.8 mg/dL (0.2-2.0); BUN/CREATININE RATIO 41.76; CALCIUM SERUM 8.5 mg/dL (8.4-10.2); CREATININE SERUM 1.7 mg/dL (0.6-1.4); GLOM FILT RATE Estimated 35.6 mL/min (>60); MAGNESIUM 2.2 mg/dL (1.6-3.0); PROTEIN TOTAL SERUM 6.9 g/dL (6.0-8.3)
[2017-02-13 07:16] LABS: POTASSIUM 5.7 mmol/L (3.5-5.1)
[2017-02-13 16:32] LABS: HEMATOCRIT 24.1 % (35.0-45.0); HEMOGLOBIN 7.8 gm/dL (12.0-16.0); MEAN CELL VOLUME 85.5 FL (83-96); MEAN CORPUSCULAR HEMOGLOBIN 27.6 PG (28-34); MEAN CORPUSCULAR HGB CONC 32.3 g/dL (30-36); MEAN PLATELET VOLUME 8.5 FL (6.5-11.5); RED BLOOD COUNT 2.82 X10e (3.90-5.30); WHITE BLOOD COUNT 8.6 X10e3 (4.0-10.5)
[2017-02-13 16:45] LABS: CREATININE SERUM 1.5 mg/dL (0.6-1.4); GLOM FILT RATE Estimated 41.4 mL/min (>60); POTASSIUM 4.7 mmol/L (3.5-5.1)
[2017-02-14 02:29] LABS: URINE APPEARANCE TURBID; URINE BILIRUBIN NEG (NEG); URINE BLOOD 2+ (NEG); URINE COLOR YELLOW; URINE GLUCOSE NEG (NEG); URINE KETONE NEG (NEG); URINE LEUKOCYTE ESTERASE 3+ (NEG); URINE NITRATE NEG (NEG); URINE PH 5.5 (5-8); URINE PROTEIN NEG (NEG); URINE SPECIFIC GRAVITY 1.014 (1.003-1.035)
[2017-02-14 02:32] LABS: URINE BACTERIA AUWI NEG (NEGATIVE); URINE SQUAMOUS EPITHELIAL CELL OCC /[HPF]; UWBCS1 AUWI INNUM (0-5)
[2017-02-14 06:21] LABS: HEMATOCRIT 25.7 % (35.0-45.0); HEMOGLOBIN 8.3 gm/dL (12.0-16.0); MEAN CELL VOLUME 85.6 FL (83-96); MEAN CORPUSCULAR HEMOGLOBIN 27.8 PG (28-34); MEAN CORPUSCULAR HGB CONC 32.5 g/dL (30-36); MEAN PLATELET VOLUME 8.4 FL (6.5-11.5); RED CELL DISTRIBUTION WIDTH 21.3 % (11.0-15.5); WHITE BLOOD COUNT 9.4 X10e3 (4.0-10.5)
[2017-02-14 06:56] LABS: BILIRUBIN,TOTAL 0.9 mg/dL (0.2-2.0); BUN/CREATININE RATIO 47.85; CREATININE SERUM 1.4 mg/dL (0.6-1.4); GLOM FILT RATE Estimated 44.9 mL/min (>60); PHOSPHOROUS 3.9 mg/dL (2.5-4.6); PROTEIN TOTAL SERUM 6.5 g/dL (6.0-8.3)
[2017-02-14] MEDS ORDERED: SANTYL30 GM TOP (20:05)
[2017-02-14] MEDS ORDERED: DAKIN'S473 M1 TOP (20:09)
[2017-02-14] MEDS ORDERED: COMBIVENT MININEB (20:10)
[2017-02-14] MEDS ORDERED: TYLENOL80 MG/0.2 PO (20:11)
[2017-02-14] MEDS ORDERED: MIRALAX17 GM PO (20:14)
[2017-02-14] MEDS ORDERED: LEVEMIR100 UNITS/ SUBQ ×2 (20:16→20:17)
[2017-02-14] MEDS ORDERED: NOVOLOG100 U/ML (20:19)
[2017-02-14] MEDS ORDERED: TYL325 PO (20:27)
[2017-02-14] MEDS ORDERED: ZOFRAN2 MG/1 ML PO (20:39)
== END 2017-02-14 22:48 | DRG 871 ==
LOC: CED 21:00 → CEDOF 21:27 → CICCU2 01-27 08:30 → CICCU3 01-29 18:29 → C3A PCU 02-01 18:32
PROVIDERS: Emergency Medicine; Hospitalist; Internal Medicine; Internal Medicine Cardiovascular Disease; Internal Medicine Nephrology; Nurse Practitioner Family; Physician Assistant Medical; Psychiatry & Neurology Neurology
PROC: 05HM33Z Insertion of Infusion Device into Right Internal Jugular Vein, Percutaneous Approach (ICD-10-PCS; 2017-01-27)
PROC: B543ZZA Ultrasonography of Right Jugular Veins, Guidance (ICD-10-PCS; 2017-01-27)
PROC: 02HV33Z Insertion of Infusion Device into Superior Vena Cava, Percutaneous Approach (ICD-10-PCS; 2017-01-27)
PROC: 4A02X4A Measurement of Cardiac Electrical Activity, Guidance, External Approach (ICD-10-PCS; 2017-01-27)
PROC: B24BZZ4 Ultrasonography of Heart with Aorta, Transesophageal (ICD-10-PCS; 2017-02-06)
PROC: 30233N1 Transfusion of Nonautologous Red Blood Cells into Peripheral Vein, Percutaneous Approach (ICD-10-PCS; 2017-02-09)
PROC: 0DB68ZX Excision of Stomach, Via Natural or Artificial Opening Endoscopic, Diagnostic (ICD-10-PCS; principal; 2017-02-12 08:00)
DX: A41.02 Sepsis due to Methicillin resistant Staphylococcus aureus (principal); J96.01 Acute respiratory failure with hypoxia; N17.0 Acute kidney failure with tubular necrosis; I21.4 Non-ST elevation (NSTEMI) myocardial infarction; R65.21 Severe sepsis with septic shock; I50.23 Acute on chronic systolic (congestive) heart failure; J18.9 Pneumonia, unspecified organism; I42.9 Cardiomyopathy, unspecified; I13.0 Hypertensive heart and chronic kidney disease with heart failure and stage 1 through stage 4 chronic kidney disease, or unspecified chronic kidney disease; E83.42 Hypomagnesemia; G92 Toxic encephalopathy; E87.2 Acidosis; F05 Delirium due to known physiological condition; F02.81 Dementia in other diseases classified elsewhere, unspecified severity, with behavioral disturbance; E87.1 Hypo-osmolality and hyponatremia; I25.10 Atherosclerotic heart disease of native coronary artery without angina pectoris; Z95.810 Presence of automatic (implantable) cardiac defibrillator; D72.829 Elevated white blood cell count, unspecified; Z90.710 Acquired absence of both cervix and uterus; Z79.4 Long term (current) use of insulin; D64.89 Other specified anemias; E11.22 Type 2 diabetes mellitus with diabetic chronic kidney disease; N18.9 Chronic kidney disease, unspecified; E03.9 Hypothyroidism, unspecified; E78.5 Hyperlipidemia, unspecified; Z87.891 Personal history of nicotine dependence; G30.9 Alzheimer's disease, unspecified; Z79.82 Long term (current) use of aspirin; Z91.19 Patient's noncompliance with other medical treatment and regimen; K44.9 Diaphragmatic hernia without obstruction or gangrene; K29.70 Gastritis, unspecified, without bleeding; E87.6 Hypokalemia; B96.20 Unspecified Escherichia coli [E. coli] as the cause of diseases classified elsewhere; E11.621 Type 2 diabetes mellitus with foot ulcer; L97.529 Non-pressure chronic ulcer of other part of left foot with unspecified severity
CPT/HCPCS: 36600; 70450; 71010; 71020; 71250; 73630; 73700; 76770; 80048; 80053; 80061; 80076; 80200; 80202; 81003; 82140; 82274; 82308; 82550; 82553; 82570; 82607; 82728; 82746; 82803; 82947; 83540; 83550; 83605; 83735; 83880; 84100; 84132; 84300; 84439; 84443; 84481; 84484; 85025; 85027; 85610; 85652; 85730; 86140; 86850; 86900; 86901; 86923; 87040; 87070; 87075; 87077; 87086; 87186; 87205; 87449; 87899; 88305; 88312; 89190; 93005; 93306; 93312; 94640; 94660; 94760; 94761; 94762; 97110; 97163; 97164; 97167; 97530; 97535; 99291; C1750; C9113; G8978-GP; G8979-GP; G8987-GO; G8988-GO; J0515; J0692; J1250; J1265; J1630; J1650; J1815; J1940; J2250; J2405; J2543; J2997; J3010; J3260; J3370; J3475; P9016